=== PATIENT | female | born 1945 | race Caucasian/White ===

== ENCOUNTER 2016-07-16 06:13 | Day surgery (SDC) | payer MEDICARE ==
[2016-07-16] MEDS ORDERED: PHENYLEPHRINE 2.5% OPHTH 2 ML DROPS ONE (06:32)
[2016-07-16] MEDS ORDERED: CYCLOPENTOLATE 1% OPHTH DROPS 2 ML OPTH ONE (06:45)
[2016-07-16] MEDS ORDERED: PROPARACAINE 0.5% OPHTH DROPS 15 ML OPTH ONE ×2 (06:45→07:41)
[2016-07-16] MEDS ORDERED: PHENYLEPHRINE 2.5% OPHTH 2 ML DROPS OPTH ONE (06:45)
[2016-07-16] MEDS ORDERED: KETOROLAC 0.45% OPHTH DROPS OPTH ONE (06:45)
[2016-07-16] MEDS ORDERED: LACTATED RINGERS 500 ML IV ONE (06:50)
[2016-07-16] MEDS ORDERED: EPINEPHrine 1 MG/ML AMP IVP ONE (07:34)
[2016-07-16] MEDS ORDERED: BSS/LIDOCAINE/EPINEPHRINE 1 ML SYRINGE IO ONE ×2 (07:34)
[2016-07-16] MEDS ORDERED: BRIMONIDINE 0.2% OPHTH DROPS 5 ML OPTH ONE (07:34)
[2016-07-16] MEDS ORDERED: CHONDR SULF/HYALURONATE SYRINGE IO ONE (07:34)
[2016-07-16] MEDS ORDERED: TRIAMCIN/MOXIFLOX/VANCO 1 ML VIAL IO ONE ×2 (07:34)
[2016-07-16] MEDS ORDERED: TIMOLOL 0.5% OPHTH DROPS OPTH ONE (07:41)
[2016-07-16] MEDS ORDERED: PROPOFOL 200 MG/20 ML VIAL IVP ONE (08:00)
[2016-07-16] MEDS ORDERED: LIDOCAINE-MPF 2% 5 ML VIAL IM ONE (08:00)
[2016-07-16] MEDS ORDERED: MIDAZOLAM 2 MG/2 ML VIAL IVP ONE (08:00)
== END 2016-07-16 06:14 | disposition home or self-care (01) ==
PROC: 08RJ3JZ Replacement of Right Lens with Synthetic Substitute, Percutaneous Approach (ICD-10-PCS; principal; 2016-07-16 07:30)
DX: H25.811 Combined forms of age-related cataract, right eye (principal); F32.9 Major depressive disorder, single episode, unspecified; Z90.710 Acquired absence of both cervix and uterus; G47.33 Obstructive sleep apnea (adult) (pediatric); Z96.649 Presence of unspecified artificial hip joint; F41.9 Anxiety disorder, unspecified
CPT/HCPCS: 66984; A9270; V2632

== ENCOUNTER 2017-01-17 19:53 | Emergency (ER) | payer MEDICARE ==
--- NOTE | 2017-01-17 20:18 | ED Physician Documentation ---
History of Present Illness - Stated complaint Stated Complaint: DIZZINESS - Chief complaint Chief Complaint: Neuro - History obtained from History obtained from: Patient - History of Present Illness Timing: Other (71-year-old, relatively healthy, has a history of fatty liver, macular degeneration and some arthritic changes. She is on a diet, 1200 ethan a day and has lost about 50 pounds over the last 5 months. At the age of 28 or so she saw a biometrics specialist in [place] who opined that in the future she may need a pacemaker because of heart fluttering. Since yesterday she has had non- positional lightheadedness that does not change with position changes. There is no associated chest pain or trouble breathing. She does have occasional palpitations with it. She has chronic pedal edema which is unchanged from her usual.) Review of Systems Ten Systems: 10 systems reviewed and negative Constitutional: reports: Weight Loss. 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 HEENT: Tonsil/Adenoidectomy - Present Medications Home Medications: Ambulatory Orders Medication Instructions Recorded Confirmed Venlafaxine ER [Effexor ER] 75 mg PO DAILY 07/15/16 01/17/17 Aspirin Chewable [[facility] 1 tab PO DAILY 01/17/17 01/17/17 Aspirin] - Allergies Allergies/Adverse Reactions: Allergies Allergy/AdvReac Type Severity Reaction Status Date / Time gluten AdvReac Unknown Verified 01/17/17 20:01 - Social History Does the pt smoke?: No Smoking Status: Never smoker - Family History Family history: reports: Non contributory PD ED PE NORMAL - Vitals Vital signs reviewed: Yes - General General: Alert and oriented X 3, No acute distress - HEENT HEENT: PERRL, EOMI - Neck Neck: Supple, no meningeal sign, No bony TTP - Cardiac Cardiac: No murmur, No gallop, Other (see MDM for rhythm discussion) - Respiratory Respiratory: No respiratory distress, Clear bilaterally - Abdomen Abdomen: Normal bowel sounds, Soft, Non tender - Back Back: No CVA TTP, No spinal TTP - Extremities Extremities: No calf tenderness / cord, Other (B 3+ pitting edema) - Neuro Neuro: Alert and oriented X 3, Normal speech - Psych Psych: Normal mood, Normal affect Results - Vitals Vitals: Vital Signs - 24 hr 01/17/17 01/17/17 01/17/17 19:58 20:00 21:15 Temperature 36.9 C Heart Rate 55 L 79 Respiratory 18 17 Rate Blood Pressure 170/92 H 150/68 H O2 Saturation 98 100 01/18/17 01/18/17 00:08 02:12 Temperature 36.8 C Heart Rate 63 70 Respiratory 14 14 Rate Blood Pressure 146/57 H 161/83 H O2 Saturation 95 96 Oxygen O2 Source Room air - EKG (time done) 2022 Rate: Rate (enter#) (64) Rhythm: NSR (with v frequent PVCs) [place]: LAD Intervals: Normal [place] QRS: Normal Ischemia: Normal ST segments Computer interpretation: Agree with computer 2024 Rate: Rate (enter#) (104) Rhythm: Other (Atrial flutter interspersed with sinus rhythm and frequent PVCs and pauses) Computer interpretation: Agree with computer - Labs Labs: Laboratory Tests 01/17/17 01/17/17 01/17/17 20:13 20:13 20:13 WBC 9.7 RBC 5.43 H Hgb 15.7 Hct 46.6 MCV 85.9 MCH 29.0 MCHC 33.8 RDW 15.2 H Plt Count 224 MPV 10.6 Neut # 6.1 Lymph # 2.9 [place] # 0.5 Eos # 0.1 Baso # 0.1 Absolute Nucleated RBC 0.01 Nucleated RBCs 0.1 Manual Slide Review Indicated Platelet Estimate NORMAL (130-450,000) Platelet Morphology 1+ GIANT PLATELETS RBC Morph Micro Appear NORMAL APPEARANCE Sodium 135 Potassium 3.5 Chloride 101 Carbon Dioxide 25 Anion Gap 9.0 BUN 13 Creatinine 0.9 Estimated GFR (MDRD) 61 L Glucose 136 H Calcium 9.3 Magnesium 2.0 Total Bilirubin 0.6 AST 34 ALT 42 Alkaline Phosphatase 120 Troponin I < 0.04 Total Protein 6.8 Albumin 4.1 Globulin 2.7 Albumin/Globulin Ratio 1.5 Lipase 27 TSH 01/17/17 20:13 WBC RBC Hgb Hct MCV MCH MCHC RDW Plt Count MPV Neut # Lymph # [place] # Eos # Baso # Absolute Nucleated RBC Nucleated RBCs Manual Slide Review Platelet Estimate Platelet Morphology RBC Morph Micro Appear Sodium Potassium Chloride Carbon Dioxide Anion Gap BUN Creatinine Estimated GFR (MDRD) Glucose Calcium Magnesium Total Bilirubin AST ALT Alkaline Phosphatase Troponin I Total Protein Albumin Globulin Albumin/Globulin Ratio Lipase TSH 4.65 PD MEDICAL DECISION MAKING - ED course ED course: This is a liz 71-year-old woman who presents with non-positional lightheadedness of the days duration. On exam and on the monitor she is having a significantly variable heart rates, and review of telemetry shows that she is often in what appears to be atrial flutter with a rate near 150, and when she is not she is in a Sinus rhythm with a low rate around 50 with frequent PVCs and pauses of up to 2 seconds. Case was discussed by phone with [facility]ometric[facility] specialist, Dr. Duran Méndez, who did recommend transfer to a cardiology capable facility for evaluation and likely pacer placement. [facility] line called and spoke with Omayra Car, case discussed and he will arrange transfer to [facility] (pt prefers [facility] as she has friends close to that hospital). Departure - Departure Disposition: 02 Transfer Acute Care Hosp Clinical Impression: Sick sinus syndrome Condition: Stable Discharge Date/Time: 01/18/17 02:20
[2017-01-17 20:26] LABS: BASOPHILS # (AUTO) 0.1 10^3/uL (0.0-0.1); BASOPHILS % (AUTO) 1.1 %; EOSINOPHILS # (AUTO) 0.1 10^3/uL (0.0-0.7); EOSINOPHILS % (AUTO) 1.3 %; HCT - HEMATOCRIT 46.6 % (37.0-47.0); HGB - HEMOGLOBIN 15.7 g/dL (12.0-16.0); LYMPHOCYTES # (AUTO) 2.9 10^3/uL (1.5-3.5); LYMPHOCYTES % (AUTO) 29.7 %; MEAN CORPUSCULAR HGB CONC 33.8 g/dL (32.0-36.0); MEAN CORPUSCULAR VOLUME 85.9 fL (81.0-99.0); MEAN PLATELET VOLUME 10.6 fL (7.9-10.8); MONOCYTES # (AUTO) 0.5 10^3/uL (0.0-1.0); MONOCYTES % (AUTO) 5.6 %; NEUTROPHILS # (AUTO) 6.1 10^3/uL (1.5-6.6); NEUTROPHILS % (AUTO) 62.3 %; NUCLEATED RED BLOOD CELLS AUTO 0.1 /100WBC; RED BLOOD COUNT 5.43 10^6/uL (4.20-5.40); RED CELL DISTRIBUTION WIDTH 15.2 % (12.0-15.0); UNCORRECTED WHITE BLOOD COUNT 9.7 x10^3/uL; WHITE BLOOD COUNT 9.7 x10^3/uL (4.8-10.8)
[2017-01-17 20:37] LABS: ALBUMIN/GLOBULIN RATIO 1.5 (1.0-2.2); BILIRUBIN,TOTAL 0.6 mg/dL (0.2-1.0); CALCIUM 9.3 mg/dL (8.5-10.3); CREATININE 0.9 mg/dL (0.4-1.0); POTASSIUM 3.5 mmol/L (3.5-5.0); TOTAL PROTEIN 6.8 g/dL (6.7-8.2)
[2017-01-17 20:39] LABS: PLATELET ESTIMATE, MANUAL NORMAL (130-450,000) (NORMAL); PLATELET MORPHOLOGY 1+ GIANT PLATELETS (NORMAL)
[2017-01-18 02:13] VITALS: BP 161/83
== END 2017-01-18 02:20 | disposition short-term general hospital (02) ==
LOC: ED 19:53
DX: I49.5 Sick sinus syndrome (principal); K76.0 Fatty (change of) liver, not elsewhere classified; M19.90 Unspecified osteoarthritis, unspecified site; I49.9 Cardiac arrhythmia, unspecified; G47.30 Sleep apnea, unspecified
CPT/HCPCS: 36415; 80053; 83690; 83735; 84443; 84484; 85025; 93005; 99285

== ENCOUNTER 2017-01-25 15:58 | Outpatient (CLI) | payer MEDICARE ==
[2017-01-25 19:28] LABS: BASOPHILS # (AUTO) 0.1 10^3/uL (0.0-0.1); BASOPHILS % (AUTO) 0.6 %; EOSINOPHILS # (AUTO) 0.1 10^3/uL (0.0-0.7); EOSINOPHILS % (AUTO) 0.9 %; HCT - HEMATOCRIT 39.7 % (37.0-47.0); HGB - HEMOGLOBIN 13.4 g/dL (12.0-16.0); LYMPHOCYTES # (AUTO) 2.2 10^3/uL (1.5-3.5); LYMPHOCYTES % (AUTO) 22.7 %; MEAN CORPUSCULAR HEMOGLOBIN 29.5 pg (27.0-31.0); MEAN CORPUSCULAR HGB CONC 33.7 g/dL (32.0-36.0); MEAN CORPUSCULAR VOLUME 87.4 fL (81.0-99.0); MEAN PLATELET VOLUME 12.2 fL (7.9-10.8); MONOCYTES # (AUTO) 0.7 10^3/uL (0.0-1.0); MONOCYTES % (AUTO) 6.9 %; NEUTROPHILS # (AUTO) 6.6 10^3/uL (1.5-6.6); NEUTROPHILS % (AUTO) 68.9 %; RED BLOOD COUNT 4.54 10^6/uL (4.20-5.40); RED CELL DISTRIBUTION WIDTH 14.8 % (12.0-15.0); UNCORRECTED WHITE BLOOD COUNT 9.5 x10^3/uL; WHITE BLOOD COUNT 9.5 x10^3/uL (4.8-10.8)
[2017-01-25 19:33] LABS: ALBUMIN/GLOBULIN RATIO 1.4 (1.0-2.2); BILIRUBIN,TOTAL 0.7 mg/dL (0.2-1.0); CALCIUM 9.1 mg/dL (8.5-10.3); CREATININE 0.8 mg/dL (0.4-1.0); POTASSIUM 4.2 mmol/L (3.5-5.0); TOTAL PROTEIN 6.3 g/dL (6.7-8.2)
[2017-01-25 20:04] LABS: PLATELET ESTIMATE, MANUAL NORMAL (130-450,000) (NORMAL); PLATELET MORPHOLOGY 2+ GIANT PLATELETS (NORMAL)
== END 2017-01-25 15:59 | disposition home or self-care (01) ==
LOC: LAB.R 15:58
PROVIDERS: ATTEND Physician Assistant Medical
DX: I49.9 Cardiac arrhythmia, unspecified (principal)
CPT/HCPCS: 80053; 84443; 85025

== ENCOUNTER 2017-02-11 11:00 | Outpatient (CLI) | payer MEDICARE ==
[2017-02-11 12:15] LABS: ALBUMIN/GLOBULIN RATIO 1.5 (1.0-2.2); BILIRUBIN,TOTAL 0.5 mg/dL (0.2-1.0); CALCIUM 9.2 mg/dL (8.5-10.3); CREATININE 0.8 mg/dL (0.4-1.0); POTASSIUM 4.2 mmol/L (3.5-5.0); TOTAL PROTEIN 6.5 g/dL (6.7-8.2)
== END 2017-02-11 11:01 | disposition home or self-care (01) ==
LOC: LAB 11:00
PROVIDERS: ATTEND Physician Assistant Medical
DX: K76.0 Fatty (change of) liver, not elsewhere classified (principal)
CPT/HCPCS: 36415; 80053

== ENCOUNTER 2017-02-24 08:25 | Outpatient (CLI) | payer MEDICARE ==
[2017-02-24 17:39] LABS: BASOPHILS % (AUTO) 0.6 %; EOSINOPHILS # (AUTO) 0.1 10^3/uL (0.0-0.7); EOSINOPHILS % (AUTO) 2.2 %; HCT - HEMATOCRIT 41.9 % (37.0-47.0); HGB - HEMOGLOBIN 13.9 g/dL (12.0-16.0); LYMPHOCYTES # (AUTO) 1.5 10^3/uL (1.5-3.5); LYMPHOCYTES % (AUTO) 22.9 %; MEAN CORPUSCULAR HEMOGLOBIN 29.8 pg (27.0-31.0); MEAN CORPUSCULAR HGB CONC 33.2 g/dL (32.0-36.0); MEAN CORPUSCULAR VOLUME 89.8 fL (81.0-99.0); MEAN PLATELET VOLUME 11.9 fL (7.9-10.8); MONOCYTES # (AUTO) 0.4 10^3/uL (0.0-1.0); NEUTROPHILS # (AUTO) 4.6 10^3/uL (1.5-6.6); NEUTROPHILS % (AUTO) 68.3 %; RED BLOOD COUNT 4.67 10^6/uL (4.20-5.40); RED CELL DISTRIBUTION WIDTH 14.7 % (12.0-15.0); UNCORRECTED WHITE BLOOD COUNT 6.7 x10^3/uL; WHITE BLOOD COUNT 6.7 x10^3/uL (4.8-10.8)
[2017-02-24 17:51] LABS: ALBUMIN/GLOBULIN RATIO 1.5 (1.0-2.2); BILIRUBIN,TOTAL 0.5 mg/dL (0.2-1.0); CALCIUM 9.3 mg/dL (8.5-10.3); CREATININE 0.9 mg/dL (0.4-1.0); TOTAL PROTEIN 6.5 g/dL (6.7-8.2)
== END 2017-02-24 08:26 | disposition home or self-care (01) ==
LOC: LAB.R 08:25
PROVIDERS: ATTEND Physician Assistant Medical
DX: R53.83 Other fatigue (principal); Z79.899 Other long term (current) drug therapy; R94.5 Abnormal results of liver function studies; E04.2 Nontoxic multinodular goiter; F32.9 Major depressive disorder, single episode, unspecified; I49.9 Cardiac arrhythmia, unspecified
CPT/HCPCS: 80053; 84443; 85025

== ENCOUNTER 2017-03-08 13:18 | Outpatient (CLI) | payer MEDICARE | END 2017-03-08 13:19 | disposition home or self-care (01) | LOC: SC 13:18 | PROVIDERS: ATTEND Internal Medicine Pulmonary Disease | DX: G47.33 Obstructive sleep apnea (adult) (pediatric) (principal) | CPT/HCPCS: 99203; G0463; 99212 ==

== ENCOUNTER 2017-09-25 17:45 | Inpatient (IN) | payer MEDICARE ==
[2017-09-25] MEDS ORDERED: MECLIZINE 12.5 MG TABLET PO STA (18:29)
[2017-09-25] MEDS ORDERED: ONDANSETRON 4 MG/2 ML VIAL IVP STA (18:29)
--- NOTE | 2017-09-25 18:31 | ED Physician Documentation ---
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 She abruptly at 650 this morning developed vertigo which has been persistent all day and feeling seasick with vomiting. 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 HEENT: Tonsil/Adenoidectomy - Present Medications Home Medications: Ambulatory Orders Medication Instructions Recorded Confirmed Venlafaxine ER [Effexor ER] 75 mg PO DAILY 07/15/16 01/17/17 Aspirin Chewable [[facility] 1 tab PO DAILY 01/17/17 01/17/17 Aspirin] Mv-Mn/Om3/Dha/Epa/Fish/Lut/Kyaw 1 cap PO DAILY 09/25/17 09/25/17 [L[employer] Softgel] traZODone [Desyrel] 50 mg PO HS PRN 09/25/17 09/25/17 - Allergies Allergies/Adverse Reactions: Allergies Allergy/AdvReac Type Severity Reaction Status Date / Time gluten AdvReac Unknown Verified 09/25/17 18:11 - Social History Does the pt smoke?: No Smoking Status: Never smoker - Family History Family history: reports: Non contributory PD ED PE NORMAL - Vitals Vital signs reviewed: Yes - General General: Alert and oriented X 3, No acute distress - HEENT HEENT: PERRL, EOMI - Neck Neck: Supple, no meningeal sign, No bony TTP - Cardiac Cardiac: RRR, No murmur - Respiratory Respiratory: No respiratory distress, Clear bilaterally - Abdomen Abdomen: Normal bowel sounds, Soft, Non tender - Neuro Neuro: Alert and oriented X 3, Normal speech, Other (NIH stroke scale is concerning because she has rotatory nystagmus and truncal ataxia but without obvious abnormal finger to nose or heel to andrade testing. Formally her NIH stroke scale is 0.) - Psych Psych: Normal mood, Normal affect Results - Vitals Vitals: Vital Signs - 24 hr 09/25/17 09/25/17 09/25/17 18:03 19:22 20:45 Temperature 36.8 C Heart Rate 61 50 L 55 L Respiratory 16 16 20 Rate Blood Pressure 170/62 H 181/77 H 145/90 H O2 Saturation 99 100 100 Oxygen O2 Source Room air - EKG (time done) 847 Rate: Rate (enter#) (47) Rhythm: Sinus bradycardia [place]: Normal Intervals: Normal [place] QRS: Normal, Low voltage Computer interpretation: Agree with computer - Labs Labs: Laboratory Tests 09/25/17 09/25/17 09/25/17 18:42 18:42 18:42 WBC 7.5 RBC 5.10 Hgb 14.4 Hct 43.3 MCV 85.0 MCH 28.3 MCHC 33.3 RDW 14.1 Plt Count 234 MPV 9.8 Neut # 5.7 Lymph # 1.4 L [place] # 0.3 Eos # 0.0 Baso # 0.0 Absolute Nucleated RBC 0.00 Nucleated RBC % 0.0 PT 11.2 INR 1.0 Sodium 139 Potassium 3.6 Chloride 104 Carbon Dioxide 25 Anion Gap 10.0 BUN 19 Creatinine 0.8 Estimated GFR (MDRD) 70 L Glucose 151 H Calcium 9.1 Total Bilirubin 0.8 AST 38 ALT 54 Alkaline Phosphatase 144 H Total Protein 6.4 L Albumin 3.9 Globulin 2.5 Albumin/Globulin Ratio 1.6 Lipase 26 Urine Color Urine Clarity Urine pH Ur Specific [place] Urine Protein Urine Glucose (UA) Urine Ketones Urine Occult Blood Urine Nitrite Urine Bilirubin Urine Urobilinogen Ur Leukocyte Esterase Ur Microscopic Review Urine Culture Comments 09/25/17 20:49 WBC RBC Hgb Hct MCV MCH MCHC RDW Plt Count MPV Neut # Lymph # [place] # Eos # Baso # Absolute Nucleated RBC Nucleated RBC % PT INR Sodium Potassium Chloride Carbon Dioxide Anion Gap BUN Creatinine Estimated GFR (MDRD) Glucose Calcium Total Bilirubin AST ALT Alkaline Phosphatase Total Protein Albumin Globulin Albumin/Globulin Ratio Lipase Urine Color YELLOW Urine Clarity CLEAR Urine pH 7.5 Ur Specific [place] 1.010 Urine Protein NEGATIVE Urine Glucose (UA) NEGATIVE Urine Ketones 15 H Urine Occult Blood NEGATIVE Urine Nitrite NEGATIVE Urine Bilirubin NEGATIVE Urine Urobilinogen 0.2 (NORMAL) Ur Leukocyte Esterase NEGATIVE Ur Microscopic Review NOT INDICATED Urine Culture Comments NOT INDICATED - Rads (name of study) CT Head Radiology: EMP read contemporaneously (NAD) CTA Head Radiology: EMP read contemporaneously (1. Noncontrast CT head has been performed and dictated separately. No abnormal enhancement postcontrast CT head. 2. HIgh-grade, likely 80-90% narrowing proximal M1 segment right MCA (for example series 4 image 87, series 7 image 66). There is also a second focal stenosis within the distal M1 segment of the right MCA (series 4 image 87, series 8 image 63), with likely at least 60-70% stenosis. The caliber of the right MCA more distally remains decreased when compared to the contralateral left side. 3. A1 segment of the left KWASI is hypoplastic but patent, with a focal superimposed stenosis likely 60-70% at the origin of the A1 segment. 4. The focal intracranial stenoses are nonspecific, may represent atherosclerosis versus vasculitis versus vasospasm. 5. No CTA evidence of proximal artery occlusion, dissection, aneurysm, or vascular malformation within the intracranial arteries. 6. Concurrently obtained CTA neck is dictated separately. ) PD MEDICAL DECISION MAKING - ED course ED course: 72yo woman with vertigo likely posterior CVA based on exam with rotatory Nystagmus and truncal ataxia. Head CT initially to my eye looks normal. Spoke with Dr. Mauro Owusu at [facility] who recommended CT angiography of the head and neck and if negative can be admitted here. If positive should go down to [facility]. She is not a TPA candidate based on the timeframe. She was administered aspirin and I spoke with Dr. Mena for admission at 9:40 PM. Departure - Departure Disposition: 66 [facility] DC/Xfer Clinical Impression: CVA (cerebral vascular accident) Qualifiers: CVA mechanism: unspecified Qualified Code(s): I63.9 - Cerebral infarction, unspecified Condition: Stable
[2017-09-25 19:02] LABS: BASOPHILS % (AUTO) 0.6 %; EOSINOPHILS % (AUTO) 0.5 %; HGB - HEMOGLOBIN 14.4 g/dL (12.0-16.0); LYMPHOCYTES # (AUTO) 1.4 10^3/uL (1.5-3.5); LYMPHOCYTES % (AUTO) 18.5 %; MEAN CORPUSCULAR HEMOGLOBIN 28.3 pg (27.0-31.0); MEAN CORPUSCULAR HGB CONC 33.3 g/dL (32.0-36.0); MEAN PLATELET VOLUME 9.8 fL (7.9-10.8); MONOCYTES # (AUTO) 0.3 10^3/uL (0.0-1.0); MONOCYTES % (AUTO) 4.4 %; NEUTROPHILS # (AUTO) 5.7 10^3/uL (1.5-6.6); PLT - PLATELET COUNT 234 10^3/uL (130-450); RED CELL DISTRIBUTION WIDTH 14.1 % (12.0-15.0); WHITE BLOOD COUNT 7.5 x10^3/uL (4.8-10.8)
--- NOTE | 2017-09-25 19:11 | CT Report ---
EXAM: CT HEAD EXAM DATE: 09/25/2017 07:00 PM. CLINICAL HISTORY: Vertigo. COMPARISON: None. TECHNIQUE: Multiaxial CT images were obtained from the foramen magnum to the vertex. Reformats: Coron al. IV contrast: None. In accordance with CT protocol optimization, one or more of the following dose reduction techniques w ere utilized for this exam: automated exposure control, adjustment of mA and/or KV based on patient s ize, or use of iterative reconstructive technique. FINDINGS: Parenchyma: No intraparenchymal hemorrhage. No evidence of mass, midline shift, or CT findings of inf arction. Loya-white differentiation is distinct. Extraaxial Spaces: Normal for age. No subdural or epidural collections identified. Ventricles: Normal in size and position. Sinuses and Orbits: Imaged paranasal sinuses, orbits, and mastoids show no significant abnormality. Bones: No evidence of fracture or calvarial defect. Other: None. IMPRESSION: No acute intracranial CT abnormality. [facility] Referring Provider Line: [phone] SITE ID: [id number]
[2017-09-25 19:13] LABS: ALBUMIN 3.9 g/dL (3.2-5.5); ALBUMIN/GLOBULIN RATIO 1.6 (1.0-2.2); BILIRUBIN,TOTAL 0.8 mg/dL (0.2-1.0); CALCIUM 9.1 mg/dL (8.5-10.3); CREATININE 0.8 mg/dL (0.4-1.0); TOTAL PROTEIN 6.4 g/dL (6.7-8.2)
[2017-09-25 19:44] LABS: PT - PROTHROMBIN TIME 11.2 secs (9.9-12.6)
[2017-09-25] MEDS ORDERED: IOPAMIDOL-300 100 ML VIAL ONE (20:08)
[2017-09-25 20:59] LABS: BILIRUBIN,URINE NEGATIVE (NEGATIVE); GLUCOSE, URINE (UA) NEGATIVE (NEGATIVE); KETONES,URINE (UA) 15 mg/dL (NEGATIVE); LEUKOCYTE ESTERASE, URINE NEGATIVE (NEGATIVE); NITRITE,URINE NEGATIVE (NEGATIVE); OCCULT BLOOD,URINE NEGATIVE (NEGATIVE); PH,URINE 7.5 PH (5.0-7.5); PROTEIN,URINE NEGATIVE (NEGATIVE); UROBILINOGEN,URINE 0.2 (NORMAL) E.U./dL (NORMAL)
[2017-09-25] MEDS ORDERED: IOPAMIDOL-300 100 ML VIAL IVP ONE (20:59)
[2017-09-25 21:02] LABS: CLARITY,URINE CLEAR (CLEAR)
[2017-09-25] MEDS ORDERED: ASPIRIN CHEW 81 MG TABLET PO STA (21:39)
--- NOTE | 2017-09-25 21:44 | CT Report ---
EXAM: CT ANGIOGRAM HEAD. CT SCAN OF THE HEAD WITH CONTRAST. EXAM DATE: 09/25/2017 08:57 PM CLINICAL HISTORY: 72-year-old female with severe vertigo. Concern for posterior CVA COMPARISON: Noncontrast CT head 09/25/2017 TECHNIQUE: - CT Scan Head: Using a multidetector scanner, axial images were acquired from the foramen magnum to the skull vertex following contrast administration. - CT Angiogram: Using a multidetector scanner, high-resolution axial images were acquired from the sk ull base through vertex following rapid infusion of intravenous contrast. Reformats: Multiplanar MIP reformats were reconstructed. Nascet criteria used for stenosis measurement. IV Contrast: 80 ML ISOVUE 300. In accordance with CT protocol optimization, one or more of the following dose reduction techniques w ere utilized for this exam: automated exposure control, adjustment of mA and/or KV based on patient s ize, or use of iterative reconstructive technique. FINDINGS: NON-CONTRAST HEAD: Performed and dictated separately. POST-CONTRAST HEAD: No abnormal enhancement. CT ANGIOGRAM HEAD: RIGHT: Internal Carotid artery: No evidence of dissection. No evidence of aneurysm along the intracranial IC A. Anterior Cerebral Artery: Patent without significant stenosis, aneurysm, or vascular malformation. Middle Cerebral Artery: There is high-grade, likely 80-90% narrowing proximal M1 segment right MCA (f or example series 4 image 87, series 7 image 66). There is also a second focal stenosis within the di stal M1 segment of the right MCA (series 4 image 87, series 8 image 63), with likely at least 60-70% stenosis. The caliber of the right MCA more distally remains decreased when compared to the contralat eral left side Posterior Cerebral Artery: Patent without significant stenosis, aneurysm, or vascular malformation. Posterior Communicating Artery: Patent. No aneurysm. Vertebral Artery: Patent without significant stenosis. No evidence of dissection. LEFT: Internal Carotid artery: No evidence of dissection. No evidence of aneurysm along the intracranial IC A. Anterior Cerebral Artery: A1 segment of the left KWASI is hypoplastic but patent, with a focal superimp osed stenosis likely 60-70% at the origin of the A1 segment. More distally the left KWASI is unremarkab le. Middle Cerebral Artery: Patent without significant stenosis, aneurysm, or vascular malformation. Posterior Cerebral Artery: Patent without significant stenosis, aneurysm, or vascular malformation. Posterior Communicating Artery: Patent. No aneurysm. Vertebral Artery: Patent without significant stenosis. No evidence of dissection. CENTRAL: Anterior Communicating Artery: Patent. No aneurysm. Basilar Artery: Patent without significant stenosis. No aneurysm. DURAL VENOUS SINUSES AND MAJOR CENTRAL VEINS: Patent. The left transverse sinus is dominant. IMPRESSION: 1. Noncontrast CT head has been performed and dictated separately. No abnormal enhancement postcontra st CT head. 2. HIgh-grade, likely 80-90% narrowing proximal M1 segment right MCA (for example series 4 image 87, series 7 image 66). There is also a second focal stenosis within the distal M1 segment of the right M CA (series 4 image 87, series 8 image 63), with likely at least 60-70% stenosis. The caliber of the r ight MCA more distally remains decreased when compared to the contralateral left side. 3. A1 segment of the left KWASI is hypoplastic but patent, with a focal superimposed stenosis likely 60 -70% at the origin of the A1 segment. 4. The focal intracranial stenoses are nonspecific, may represent atherosclerosis versus vasculitis v ersus vasospasm. 5. No CTA evidence of proximal artery occlusion, dissection, aneurysm, or vascular malformation withi n the intracranial arteries. 6. Concurrently obtained CTA neck is dictated separately. The findings were discussed with Dr. Montoya 9:40 PM on 09/25/2017. [facility] Referring Provider Line: [phone] SITE ID: [id number]
[2017-09-25] MEDS ORDERED: traZODone 50 MG TABLET PO PRN (21:49)
[2017-09-25] MEDS ORDERED: ASPIRIN CHEW 81 MG TABLET ONE (21:51)
--- NOTE | 2017-09-25 21:52 | CT Report ---
EXAM: CT ANGIOGRAM NECK EXAM DATE: 09/25/2017 08:58 PM. CLINICAL HISTORY: Posterior CVA. COMPARISON: CTA head obtained concurrently TECHNIQUE: Routine axial helical imaging was performed from the skull base through the aortic arch. R econstructions: Routine multiplanar 3D MIP reconstructions. IV Contrast: 80 ML ISOVUE 300. Evaluation of arterial stenosis is based on a NASCET method of measurement. In accordance with CT protocol optimization, one or more of the following dose reduction techniques w ere utilized for this exam: automated exposure control, adjustment of mA and/or KV based on patient s ize, or use of iterative reconstructive technique. FINDINGS: Right Carotid: Mild atherosclerosis right carotid bifurcation and right carotid bulb, no hemodynamica lly significant stenosis. The common carotid, internal carotid, and external carotid arteries are wid [place] patent. No evidence of dissection. Left Carotid: Mild atherosclerosis left carotid bifurcation and left carotid bulb, no hemodynamically significant stenosis The common carotid, internal carotid, and external carotid arteries are widely patent. No evidence of dissection Vertebrals: The right vertebral artery slightly dominant. Approximately 20-30% narrowing origin of th e right vertebral artery. The vertebrobasilar system is otherwise unremarkable. Intracranial Circulation: Concurrently obtained CT head is dictated separately. Other: The visualized lung apices are clear. Moderate to severe multilevel degenerative spondylosis o f the visualized spine, no acute fracture or malalignment. The visualized soft tissues of the neck de monstrate no acute abnormality. IMPRESSION: 1. Concurrently obtained CTA head is dictated separately. 2. No CT evidence of high-grade stenosis, dissection, occlusion, aneurysm, or vascular malformation w ithin the extracranial arteries. 3. Mild atherosclerosis right carotid bifurcation and right carotid bulb, no hemodynamically signific ant stenosis. 4. Mild atherosclerosis left carotid bifurcation and left carotid bulb, no hemodynamically significan t stenosis 5. The right vertebral artery slightly dominant. Approximately 20-30% narrowing origin of the right v ertebral artery. The vertebrobasilar system is otherwise unremarkable. The findings were discussed with Dr. Montoya 9:40 PM on 09/25/2017. [facility] Referring Provider Line: [phone] SITE ID: [id number]
[2017-09-25] MEDS ORDERED: PROMETHAZINE 25 MG/1 ML VIAL IM PRN (21:53)
[2017-09-25] MEDS ORDERED: oxyCODONE 5 MG TABLET PO PRN (21:53)
[2017-09-25] MEDS ORDERED: ZOLPIDEM 5 MG TABLET PO PRN (21:53)
[2017-09-25] MEDS ORDERED: PROCHLORPERAZINE 10 MG/2 ML VIAL IVP PRN (21:53)
[2017-09-25] MEDS ORDERED: ACETAMINOPHEN 325 MG TABLET PO PRN (21:53)
[2017-09-25] MEDS: ONDANSETRON 4 MG/2 ML VIAL IVP PRN (22:34)
--- NOTE | 2017-09-25 23:01 | HISTORY & PHYSICAL EXAMINATION ---
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 The patient states she was in her normal state of health when she went to sleep last night. She states that she woke up this morning at 6:50 AM and when she got up she noticed that she had extreme vertigo. She states that she had to hold onto the side faust just to get into the bathroom. She states that she became extremely nauseated and vomited several times. She states that she canceled all her activities for the day and thought maybe she could sleep it off. The patient denies any fevers, chills or recent illness. She also denies any ringing in her ears, ear pain or any other upper respiratory symptoms. The patient states that the vertigo persisted throughout the day. She states that she had a great deal of difficulty walking around as she had an unsteady gait. She states that anytime she tried to get up or moved in the bed she became extremely nauseated and continued to have episodes of emesis throughout the day. She states that she has never experienced anything like this before. She does admit to some photophobia but denies a headache. She also states that she had blurry vision as she states that she cannot stay focused on any single object with her eyes. The patient denies any difficulties with her speech, facial droop or any kind of weakness. She states the vertigo is present anytime she moves her eyes, head , sits up or stands up. She states that since it did not go away throughout the day finally this evening she decided she needed to come into the emergency department. Patient denies any runny nose, sore throat, nasal congestion, difficulty swallowing, chest pain, shortness of air, orthopnea, PND, increased lower extremity swelling, cough, abdominal pain, diarrhea, constipation, urinary urgency, urinary frequency, dysuria, joint pain, joint swelling, muscle aches, back pain, neck stiffness, recent unintentional weight loss, changes in her appetite, skin rashes or skin changes, polyuria, polydipsia, hair loss, fatigue , night sweats or any focal neurologic deficits. On presentation to the emergency department the patient was afebrile and heart rate was 61 but she did have episodes of bradycardia on the court recording monitor. The patient was hypertensive and remained hypertensive throughout the time she was in the emergency department. She was not in any respiratory distress. On examination in the emergency department the patient was found to have rotatory nystagmus and truncal ataxia with an NIH stroke scale score of 0. The patient underwent a CT scan of her brain which showed no acute intracranial abnormality. The emergency room physician spoke with Dr. Owusu production miner neurologist at [facility] who recommended a CT angiogram of the head and neck and stated if it was negative for a large thrombus that the patient should be admitted to [facility]. He stated that the patient was not in the timeframe for TPA. But from her clinical presentation she likely had a posterior stroke. The patient underwent a CT angiogram of the head and neck which revealed a high-grade likely 80-90% narrowing proximal M1 segment right MCA. There was also a second focal stenosis within the distal M1 segment of the right MCA with likely at least 60- 70% stenosis. The caliber of the right MCA more distally remained decreased when compared to the contralateral left side. The patient's A1 segment of the left KWASI was hypoplastic but patent with a focal superimposed stenosis likely 60 -70% at the origin of the A1 segment. The focal intracranial stenosis are nonspecific, and may represent atherosclerosis versus vasculitis versus vasospasm. On the CTA neck there was a finding of approximately 20-30% narrowing at the origin of the right vertebral artery otherwise it was unremarkable. These findings did not explain the patient's symptoms clinically. The patient's lab work was negative for any leukocytosis, elevation in her sed rate or CRP. This went against vasculitis as the cause of her current symptoms. Given the patient's clinical presentation of a posterior stroke the patient was admitted to the medical barger and will undergo further evaluation with an echocardiogram and MRI while she is hospitalized. She will also undergo neuro checks and will be kept on telemetry. She will need to be seen by physical therapy and occupational therapy and monitored for any worsening symptoms. History - Past Medical History Cardiovascular: reports: Arrhythmia (Tachybrady syndrome) Respiratory: reports: Shortness of breath, Sleep apnea, CPAP use Endocrine/Autoimmune: reports: None GI: reports: None : reports: None HEENT: reports: None Psych: reports: Depression, Anxiety Musculoskeletal: reports: Osteoarthritis Derm: reports: None MRSA Hx?: No Other Past Medical History: fatty liver - Past Surgical History Ortho: reports: Hip replacement, Other /CARE PROVIDER: reports: Hysterectomy HEENT: reports: Tonsil/Adenoidectomy - Family & Social History Family History: Mother: , Cancer (Mother and father both of lung cancer they were smokers. Brother has multiple myeloma), Father: , Cancer, Sister: Alive and Well, Brother: Cancer Living arrangement: At home Living Situation: Alone Social History Notes: The patient lives in [place], [place]. She lives alone and has 1 cat. She has never had any children and has never been . She moved would be [place] for years ago. Prior to that she lived in [place] where she worked in [employer] for [employer]. 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 She smoked for a short time during college may be for 6 years and smoked no more than half a pack a day. She has not smoked for nearly 50 years. She does not drink any alcohol and denies any illicit drug use. - POLST Patient has POLST: No POLST Status: Full Code Meds/Allgy - Home Medications Home Medications: Ambulatory Orders Medication Instructions Recorded Confirmed Venlafaxine ER [Effexor ER] 75 mg PO DAILY 07/15/16 01/17/17 Aspirin Chewable [[place] 1 tab PO DAILY 01/17/17 01/17/17 Aspirin] Mv-Mn/Om3/Dha/Epa/Fish/Lut/Kyaw 1 cap PO DAILY 09/25/17 09/25/17 [Lipotriad Visionary Softgel] traZODone [Desyrel] 50 mg PO HS PRN 09/25/17 09/25/17 - Allergies Allergies/Adverse Reactions: Allergies Allergy/AdvReac Type Severity Reaction Status Date / Time gluten AdvReac Unknown Verified 09/25/17 18:11 Review of Systems - Other Findings Other Findings: A comprehensive review of systems was performed the pertinent positives and negatives are stated above in the HPI and the remainder of the review of systems is negative. Exam - Vital Signs Reviewed Vital Signs: Yes Vital Signs: Vital Signs x48h Temp Pulse Resp BP Pulse Ox 09/25/17 22:59 98.5 C H 55 L 16 177/58 H 95 - Physical Exam General Appearance: positive: Alert, Moderate distress (She becomes nauseated with sitting up or moving around in bed and has extreme vertigo.) Eyes Bilateral: positive: Normal inspection, PERRL, No lid inflammation, Conjunctivae nml, No scleral icterus, Other (Patient has rotary nystagmus) ENT: positive: ENT inspection nml, Pharynx nml, No signs of dehydration. negative: Purulent nasal drainage, Pharyngeal erythema, Oral lesions Neck: positive: Nml inspection, Thyroid nml, No JVD, Trachea midline. negative : Thyromegaly, Lymphadenopathy (R), Lymphadenopathy (L), Stiff neck, Carotid bruit, Tracheal deviation Respiratory: positive: Chest non-tender, No respiratory distress, Breath sounds nml. negative: Wheezes, Rales, Rhonchi Cardiovascular: positive: No murmur, No gallop, Extrasystoles, Bradycardia, Other (Patient has a very irregular rhythm) Peripheral Pulses: positive: 2+ Abdomen: positive: Non-tender, No organomegaly, Nml bowel sounds, No distention. negative: Guarding, Rebound, Hepatomegaly Back: positive: Nml inspection. negative: CVA tenderness (R), CVA tenderness (L ) Skin: positive: Color nml, No rash, Warm. negative: Cyanosis, Diaphoresis, Pallor Extremities: positive: Non-tender, Full ROM, Nml appearance, No pedal edema Neurologic/Psychiatric: positive: Oriented x3, CN's nml (2-12), Motor nml, Sensation nml, Mood/affect nml, Other (Gait ataxia) Conclusion/Plan - Problem List (1) Vertigo Conclusion/Plan: The patient presented to the emergency department with severe vertigo. Along with the vertigo she was also found to have rotatory nystagmus, severe nausea and an ataxic gait. Her presentation was very suspicious for a posterior stroke. Patient's CT head was negative and her CT angiogram although it showed significant narrowing in the MCA distribution did not explain her presenting symptoms. The patient's vertigo does not appear to be peripheral rather it appears to be central vertigo and is likely from a posterior stroke. Plan: We will treat the patient as though she has had a posterior stroke as she clinically appears to have had one Aspirin 325 mg daily, Lipitor 80 mg daily Echocardiogram MRI of the brain Allow for permissive hypertension Consult PT and OT Neurochecks Telemetry monitoring (2) Rotary nystagmus Conclusion/Plan: The patient presents to the emergency department with severe vertigo, nausea and vomiting. She was also found to have rotary nystagmus on examination along with ataxia on examination. Given these findings the patient appeared to have central vertigo and appears to have had a posterior stroke. The patient's CT head and CT angiogram of the brain do not show a posterior stroke but given her clinical presentation it is highly likely and the patient will need an MRI. Plan: We will treat the patient as though she has had a posterior stroke as she clinically appears to have had one Aspirin 325 mg daily, Lipitor 80 mg daily Echocardiogram MRI of the brain Allow for permissive hypertension Consult PT and OT Neurochecks Telemetry monitoring (3) Ataxic gait Conclusion/Plan: The patient presented to the emergency department with severe vertigo, nausea and vomiting. On presentation she was found to have rotary nystagmus along with an ataxic gait. The patient also complained of an ataxic gait at home where she was having to hold the faust just to get to the bathroom. The patient appears to have had a posterior stroke clinically. Although the CT angiogram of the head and neck and CT head are negative for stroke at this time she does need to undergo MRI for diagnosis. The patient will be treated as a posterior stroke for now. She was not a TPA candidate given she woke up with the symptoms and presented to the emergency department nearly 12 hours later. The patient presents to the emergency department with severe vertigo, nausea and vomiting. She was also found to have rotary nystagmus on examination along with ataxia on examination. Given these findings the patient appeared to have central vertigo and appears to have had a posterior stroke. The patient's CT head and CT angiogram of the brain do not show a posterior stroke but given her clinical presentation it is highly likely and the patient will need an MRI. (4) Tachy-eugenie syndrome Conclusion/Plan: The patient has a history of tachybradycardia syndrome. She has had an extensive workup including a stress test and has been evaluated by .net programmer. She did not have a pacemaker placed and is not undergoing any kind of intervention. On her telemetry in the emergency department the patient was found to have episodes of tachycardia mixed with bradycardia. Her heart rate though did appear to stay in the 50s-60s and she was asymptomatic. Given findings of narrowing of her intracranial arteries with bradycardia and low flow this could cause symptomology however the patient's presentation with posterior stroke like symptoms does not go with the findings on her CT angiogram. Plan: Monitor on telemetry (5) Hypertension Conclusion/Plan: The patient appears to have hypertension secondary to a new stroke. For the first 48 hours we will allow for permissive hypertension and monitor blood pressure but not treat unless blood pressure is greater than 190 systolic over 110 diastolic. Qualifiers: Hypertension type: other secondary hypertension Qualified Code(s): I15.8 - Other secondary hypertension (6) Depression Conclusion/Plan: The patient has history of depression and is on antidepressants at home with trazodone and Effexor. We will continue these while she is hospitalized currently her mood is stable despite having been told she likely has a stroke. Qualifiers: Depression Type: unspecified Qualified Code(s): F32.9 - Major depressive disorder, single episode, unspecified - Lab Results Lab results reviewed: Yes Fish Bones: 09/25/17 18:42 09/25/17 18:42 Other Lab Results: Laboratory Results WBC 7.5 x10^3/uL (4.8-10.8) 09/25/17 18:42 RBC 5.10 10^6/uL (4.20-5.40) 09/25/17 18:42 Hgb 14.4 g/dL (12.0-16.0) 09/25/17 18:42 Hct 43.3 % (37.0-47.0) 09/25/17 18:42 MCV 85.0 fL (81.0-99.0) 09/25/17 18:42 MCH 28.3 pg (27.0-31.0) 09/25/17 18:42 MCHC 33.3 g/dL (32.0-36.0) 09/25/17 18:42 RDW 14.1 % (12.0-15.0) 09/25/17 18:42 Plt Count 234 10^3/uL (130-450) 09/25/17 18:42 MPV 9.8 fL (7.9-10.8) 09/25/17 18:42 Neut # 5.7 10^3/uL (1.5-6.6) 09/25/17 18:42 Lymph # 1.4 10^3/uL (1.5-3.5) L 09/25/17 18:42 Barren # 0.3 10^3/uL (0.0-1.0) 09/25/17 18:42 Eos # 0.0 10^3/uL (0.0-0.7) 09/25/17 18:42 Baso # 0.0 10^3/uL (0.0-0.1) 09/25/17 18:42 Absolute Nucleated RBC 0.00 x10^3/uL 09/25/17 18:42 Nucleated RBC % 0.0 /100WBC 09/25/17 18:42 ESR 7 mm/Hr (0-30) 09/25/17 18:42 PT 11.2 secs (9.9-12.6) 09/25/17 18:42 INR 1.0 (0.8-1.2) 09/25/17 18:42 Sodium 139 mmol/L (135-145) 09/25/17 18:42 Potassium 3.6 mmol/L (3.5-5.0) 09/25/17 18:42 Chloride 104 mmol/L (101-111) 09/25/17 18:42 Carbon Dioxide 25 mmol/L (21-32) 09/25/17 18:42 Anion Gap 10.0 (6-13) 09/25/17 18:42 BUN 19 mg/dL (6-20) 09/25/17 18:42 Creatinine 0.8 mg/dL (0.4-1.0) 09/25/17 18:42 Estimated GFR (MDRD) 70 (>89) L 09/25/17 18:42 Glucose 151 mg/dL (70-100) H 09/25/17 18:42 Calcium 9.1 mg/dL (8.5-10.3) 09/25/17 18:42 Total Bilirubin 0.8 mg/dL (0.2-1.0) 09/25/17 18:42 AST 38 IU/L (10-42) 09/25/17 18:42 ALT 54 IU/L (10-60) 09/25/17 18:42 Alkaline Phosphatase 144 IU/L (42-121) H 09/25/17 18:42 C-Reactive Protein < 1.0 mg/dL (0-1.0) 09/25/17 18:42 Total Protein 6.4 g/dL (6.7-8.2) L 09/25/17 18:42 Albumin 3.9 g/dL (3.2-5.5) 09/25/17 18:42 Globulin 2.5 g/dL (2.1-4.2) 09/25/17 18:42 Albumin/Globulin Ratio 1.6 (1.0-2.2) 09/25/17 18:42 Lipase 26 U/L (22-51) 09/25/17 18:42 Urine Color YELLOW 09/25/17 20:49 Urine Clarity CLEAR (CLEAR) 09/25/17 20:49 Urine pH 7.5 PH (5.0-7.5) 09/25/17 20:49 Ur Specific [place] 1.010 (1.002-1.030) 09/25/17 20:49 Urine Protein NEGATIVE mg/dL (NEGATIVE) 09/25/17 20:49 Urine Glucose (UA) NEGATIVE mg/dL (NEGATIVE) 09/25/17 20:49 Urine Ketones 15 mg/dL (NEGATIVE) H 09/25/17 20:49 Urine Occult Blood NEGATIVE (NEGATIVE) 09/25/17 20:49 Urine Nitrite NEGATIVE (NEGATIVE) 09/25/17 20:49 Urine Bilirubin NEGATIVE (NEGATIVE) 09/25/17 20:49 Urine Urobilinogen 0.2 (NORMAL) E.U./dL (NORMAL) 09/25/17 20:49 Ur Leukocyte Esterase NEGATIVE (NEGATIVE) 09/25/17 20:49 Ur Microscopic Review NOT INDICATED 09/25/17 20:49 Urine Culture Comments NOT INDICATED 09/25/17 20:49 - Diagnostic Imaging Results Diagnostic Imaging Results: positive: Final report reviewed Diagnostic Imaging Results Comments: EXAM: [id number] CT/HEADWO ([id number]) EXAM: CT HEAD EXAM DATE: 09/25/2017 07:00 PM. CLINICAL HISTORY: Vertigo. COMPARISON: None. TECHNIQUE: Multiaxial CT images were obtained from the foramen magnum to the vertex. Reformats: Coronal. IV contrast: None. In accordance with CT protocol optimization, one or more of the following dose reduction techniques were utilized for this exam: automated exposure control, adjustment of mA and/or KV based on patient size, or use of iterative reconstructive technique. FINDINGS: Parenchyma: No intraparenchymal hemorrhage. No evidence of mass, midline shift, or CT findings of infarction. Loya-white differentiation is distinct. Extraaxial Spaces: Normal for age. No subdural or epidural collections identified. Ventricles: Normal in size and position. Sinuses and Orbits: Imaged paranasal sinuses, orbits, and mastoids show no significant abnormality. Bones: No evidence of fracture or calvarial defect. Other: None. IMPRESSION: No acute intracranial CT abnormality. EXAM: [id number] CT/NECKANG ([id number]) EXAM: CT ANGIOGRAM NECK EXAM DATE: 09/25/2017 08:58 PM. CLINICAL HISTORY: Posterior CVA. COMPARISON: CTA head obtained concurrently TECHNIQUE: Routine axial helical imaging was performed from the skull base through the aortic arch. Reconstructions: Routine multiplanar 3D MIP reconstructions. IV Contrast: 80 ML ISOVUE 300. Evaluation of arterial stenosis is based on a NASCET method of measurement. In accordance with CT protocol optimization, one or more of the following dose reduction techniques were utilized for this exam: automated exposure control, adjustment of mA and/or KV based on patient size, or use of iterative reconstructive technique. FINDINGS: Right Carotid: Mild atherosclerosis right carotid bifurcation and right carotid bulb, no hemodynamically significant stenosis. The common carotid, internal carotid, and external carotid arteries are widely patent. No evidence of dissection. Left Carotid: Mild atherosclerosis left carotid bifurcation and left carotid bulb, no hemodynamically significant stenosis The common carotid, internal carotid, and external carotid arteries are widely patent. No evidence of dissection Vertebrals: The right vertebral artery slightly dominant. Approximately 20-30% narrowing origin of the right vertebral artery. The vertebrobasilar system is otherwise unremarkable. Intracranial Circulation: Concurrently obtained CT head is dictated separately. Other: The visualized lung apices are clear. Moderate to severe multilevel degenerative spondylosis of the visualized spine, no acute fracture or malalignment. The visualized soft tissues of the neck demonstrate no acute abnormality. IMPRESSION: 1. Concurrently obtained CTA head is dictated separately. 2. No CT evidence of high-grade stenosis, dissection, occlusion, aneurysm, or vascular malformation within the extracranial arteries. 3. Mild atherosclerosis right carotid bifurcation and right carotid bulb, no hemodynamically significant stenosis. 4. Mild atherosclerosis left carotid bifurcation and left carotid bulb, no hemodynamically significant stenosis 5. The right vertebral artery slightly dominant. Approximately 20-30% narrowing origin of the right vertebral artery. The vertebrobasilar system is otherwise unremarkable. EXAM: CT ANGIOGRAM HEAD. CT SCAN OF THE HEAD WITH CONTRAST. EXAM DATE: 09/25/2017 08:57 PM CLINICAL HISTORY: 72-year-old female with severe vertigo. Concern for posterior CVA COMPARISON: Noncontrast CT head 09/25/2017 TECHNIQUE: - CT Scan Head: Using a multidetector scanner, axial images were acquired from the foramen magnum to the skull vertex following contrast administration. - CT Angiogram: Using a multidetector scanner, high-resolution axial images were acquired from the skull base through vertex following rapid infusion of intravenous contrast. Reformats: Multiplanar MIP reformats were reconstructed. Nascet criteria used for stenosis measurement. IV Contrast: 80 ML ISOVUE 300. In accordance with CT protocol optimization, one or more of the following dose reduction techniques were utilized for this exam: automated exposure control, adjustment of mA and/or KV based on patient size, or use of iterative reconstructive technique. FINDINGS: NON-CONTRAST HEAD: Performed and dictated separately. POST-CONTRAST HEAD: No abnormal enhancement. CT ANGIOGRAM HEAD: RIGHT: Internal Carotid artery: No evidence of dissection. No evidence of aneurysm along the intracranial ICA. Anterior Cerebral Artery: Patent without significant stenosis, aneurysm, or vascular malformation. Middle Cerebral Artery: There is high-grade, likely 80-90% narrowing proximal M1 segment right MCA (for example series 4 image 87, series 7 image 66). There is also a second focal stenosis within the distal M1 segment of the right MCA (series 4 image 87, series 8 image 63), with likely at least 60-70% stenosis. The caliber of the right MCA more distally remains decreased when compared to the contralateral left side Posterior Cerebral Artery: Patent without significant stenosis, aneurysm, or vascular malformation. Posterior Communicating Artery: Patent. No aneurysm. Vertebral Artery: Patent without significant stenosis. No evidence of dissection. LEFT: Internal Carotid artery: No evidence of dissection. No evidence of aneurysm along the intracranial ICA. Anterior Cerebral Artery: A1 segment of the left KWASI is hypoplastic but patent, with a focal superimposed stenosis likely 60-70% at the origin of the A1 segment. More distally the left KWASI is unremarkable. Middle Cerebral Artery: Patent without significant stenosis, aneurysm, or vascular malformation. Posterior Cerebral Artery: Patent without significant stenosis, aneurysm, or vascular malformation. Posterior Communicating Artery: Patent. No aneurysm. Vertebral Artery: Patent without significant stenosis. No evidence of dissection. CENTRAL: Anterior Communicating Artery: Patent. No aneurysm. Basilar Artery: Patent without significant stenosis. No aneurysm. DURAL VENOUS SINUSES AND MAJOR CENTRAL VEINS: Patent. The left transverse sinus is dominant. IMPRESSION: 1. Noncontrast CT head has been performed and dictated separately. No abnormal enhancement postcontrast CT head. 2. HIgh-grade, likely 80-90% narrowing proximal M1 segment right MCA (for example series 4 image 87 , series 7 image 66). There is also a second focal stenosis within the distal M1 segment of the right MCA (series 4 image 87, series 8 image 63), with likely at least 60-70% stenosis. The caliber of the right MCA more distally remains decreased when compared to the contralateral left side. 3. A1 segment of the left KWASI is hypoplastic but patent, with a focal superimposed stenosis likely 60-70% at the origin of the A1 segment. 4. The focal intracranial stenoses are nonspecific, may represent atherosclerosis versus vasculitis versus vasospasm. 5. No CTA evidence of proximal artery occlusion, dissection, aneurysm, or vascular malformation within the intracranial arteries. 6. Concurrently obtained CTA neck is dictated separately. - EKG Results EKG Interpreted Independently: Yes EKG Findings: Sinus bradycardia with no ischemic changes Core Measures - Anticipated LOS I expect patient to be DC'd or transferred within 96 hours.: Yes - DVT/VTE - Prophylaxis VTE/DVT Prophylaxis med ordered at admit?: Yes
[2017-09-26] MEDS: SODIUM CHLORIDE FLUSH 0.9% 10 ML SYRINGE IVP SCH ×3 (00:19→20:35)
[2017-09-26] MEDS: ONDANSETRON 4 MG/2 ML VIAL IVP PRN ×2 (06:23→15:14)
[2017-09-26] MEDS: SODIUM CHLORIDE FLUSH 0.9% 10 ML SYRINGE IVP PRN ×3 (06:23→15:15)
[2017-09-26 06:40] LABS: BASOPHILS # (AUTO) 0.1 10^3/uL (0.0-0.1); BASOPHILS % (AUTO) 0.6 %; EOSINOPHILS % (AUTO) 0.3 %; HGB - HEMOGLOBIN 13.6 g/dL (12.0-16.0); LYMPHOCYTES # (AUTO) 2.2 10^3/uL (1.5-3.5); LYMPHOCYTES % (AUTO) 22.1 %; MEAN CORPUSCULAR HEMOGLOBIN 28.1 pg (27.0-31.0); MEAN CORPUSCULAR HGB CONC 32.8 g/dL (32.0-36.0); MEAN CORPUSCULAR VOLUME 85.6 fL (81.0-99.0); MEAN PLATELET VOLUME 9.9 fL (7.9-10.8); MONOCYTES # (AUTO) 0.5 10^3/uL (0.0-1.0); MONOCYTES % (AUTO) 4.8 %; NEUTROPHILS # (AUTO) 7.3 10^3/uL (1.5-6.6); NEUTROPHILS % (AUTO) 72.2 %; PLT - PLATELET COUNT 244 10^3/uL (130-450); RED BLOOD COUNT 4.84 10^6/uL (4.20-5.40); RED CELL DISTRIBUTION WIDTH 13.8 % (12.0-15.0); WHITE BLOOD COUNT 10.1 x10^3/uL (4.8-10.8)
[2017-09-26 06:46] LABS: INR 1.1 (0.8-1.2)
[2017-09-26 06:49] LABS: ALBUMIN 3.4 g/dL (3.2-5.5); ALBUMIN/GLOBULIN RATIO 1.4 (1.0-2.2); BILIRUBIN,TOTAL 0.7 mg/dL (0.2-1.0); CALCIUM 8.8 mg/dL (8.5-10.3); CREATININE 0.8 mg/dL (0.4-1.0); TOTAL PROTEIN 5.9 g/dL (6.7-8.2)
[2017-09-26] MEDS: ASPIRIN 325 MG TABLET PO SCH (08:12)
[2017-09-26] MEDS: FAMOTIDINE 20 MG TABLET PO SCH (08:13)
[2017-09-26] MEDS: MULTIVITAMIN TABLET PO SCH (08:13)
[2017-09-26] MEDS: POLYETHYLENE GLYCOL 3350 17 GM PACKET PO SCH (08:18)
[2017-09-26] MEDS ORDERED: ENOXAPARIN 40 MG/0.4 ML SYRINGE SUBQ SCH (09:00)
[2017-09-26] MEDS ORDERED: VENLAFAXINE ER 75 MG CAPSULE PO SCH (09:00)
[2017-09-26] MEDS: VENLAFAXINE ER 75 MG CAPSULE PO SCH ×2 (10:20→20:36)
[2017-09-26] MEDS: [UNRECOGNIZED DRUG - OTHER] PO SCH (10:20)
[2017-09-26] MEDS ORDERED: SODIUM CHLORIDE FLUSH 0.9% 10 ML SYRINGE ONE (10:57)
--- NOTE | 2017-09-26 14:53 | PROVIDER PROGRESS NOTE ---
Subjective - Prog Note Date Prog Note Date: 09/26/17 - Subjective Pt reports feeling: Improved Subjective: pt report she still has vertigo but better, still has some ataxia but better. No fever, chill, cough, CP, SOB. Current Medications - Current Medications Current Medications: Active Medications Acetaminophen (Tylenol) 650 mg PO Q4HR PRN PRN Reason: Pain 1 to 4 Aspirin (Cheko) 325 mg PO DAILYWM [facility] Last Admin: 09/26/17 08:12 Dose: 325 mg Atorvastatin Calcium (Lipitor) 80 mg PO QPM [facility] Famotidine (Pepcid) 20 mg PO DAILY [facility] Last Admin: 09/26/17 08:13 Dose: 20 mg Multivitamins (Theragran) 1 tab PO DAILYWM [facility] Last Admin: 09/26/17 08:13 Dose: 1 tab Ondansetron HCl (Zofran Inj) 4 mg IVP Q6HR PRN PRN Reason: Nausea / Vomiting Last Admin: 09/26/17 06:23 Dose: 4 mg Oxycodone HCl (Roxicodone) 5 mg PO Q4HR PRN PRN Reason: Pain 5 to 7 Lipotriad Vision (Vitamin Capsule) 1 each PO DAILY [facility] Last Admin: 09/26/17 10:20 Dose: 1 each Polyethylene Glycol (Miralax) 17 gm PO DAILY [facility] Last Admin: 09/26/17 08:18 Dose: Not Given Prochlorperazine Edisylate (Compazine Inj) 10 mg IVP Q6HR PRN PRN Reason: Nausea / Vomiting Last Admin: 09/26/17 10:50 Dose: 10 mg Promethazine HCl (Phenergan Inj) 25 mg IM Q6HR PRN PRN Reason: Nausea / Vomiting Sodium Chloride (Normal Saline Flush 0.9%) 10 ml IVP PRN PRN PRN Reason: NEEDED PER PROVIDER ORDERS Last Admin: 09/26/17 10:51 Dose: 10 ml Sodium Chloride (Normal Saline Flush 0.9%) 10 ml IVP 0100,0900,1700 [facility] Last Admin: 09/26/17 08:13 Dose: 10 ml Trazodone HCl (Desyrel) 50 mg PO QPM [facility] Venlafaxine HCl (Effexor Er) 75 mg PO BID [facility] Last Admin: 09/26/17 10:20 Dose: 75 mg Zolpidem Tartrate (Ambien) 5 mg PO QPM PRN PRN Reason: Insomnia Venlafaxine ER [Effexor ER] 75 mg PO BID 07/15/16 Mv-Mn/Om3/Dha/Epa/Fish/Lut/Kyaw [Lipotriad Visionary Softgel] 1 cap PO DAILY traZODone [Desyrel] 50 mg PO QPM 09/25/17 Objective - Vital Signs/Intake & Output Reviewed Vital Signs: Yes Vital Signs: Vital Signs x48h Temp Pulse Pulse Resp Resp BP BP 09/26/17 13:00 36.4 C L 136 H 14 113/80 09/26/17 10:30 56 L 16 127/61 09/26/17 09:40 36.4 C L 52 L 12 123/60 09/26/17 08:00 36.4 C L 52 L 12 123/60 Pulse Ox Pulse Ox 09/26/17 13:00 97 09/26/17 10:30 98 09/26/17 09:40 95 09/26/17 08:00 95 Intake & Output: Intake & Output 09/23/17 09/24/17 09/25/17 09/26/17 23:59 23:59 23:59 23:59 Intake Total 710 Balance 710 - Objective General Appearance: positive: No acute distress, Alert. negative: Lethargic Eyes Bilateral: positive: Normal inspection, PERRL, No lid inflammation, Conjunctivae nml ENT: positive: ENT inspection nml, Pharynx nml, No signs of dehydration. negative: Purulent nasal drainage, Pharyngeal erythema, Oral lesions Neck: positive: Nml inspection, Thyroid nml, No JVD, Trachea midline. negative : Thyromegaly, Lymphadenopathy (R), Lymphadenopathy (L), Stiff neck, Carotid bruit, Swelling/bruising, Tracheal deviation Respiratory: positive: Chest non-tender, No respiratory distress, Breath sounds nml. negative: Wheezes, Rales, Rhonchi Cardiovascular: positive: Regular rate & rhythm, No murmur, No gallop. negative : Irregularly irregular, Extrasystoles, Tachycardia, Bradycardia, JVD present, Systolic murmur, Diastolic murmur Peripheral Pulses: 2+ Radial (R), 2+ Radial (L), 2+ Dorsalis pedis (R), 2+ Dorsalis pedis (L) Abdomen: positive: Non-tender, No organomegaly, Nml bowel sounds, No distention. negative: Tenderness, Guarding, Rebound Back: positive: Nml inspection. negative: CVA tenderness (R), CVA tenderness (L ) Skin: positive: Color nml, No rash, Warm, Dry. negative: Cyanosis, Diaphoresis , Pallor Extremities: positive: Non-tender, Full ROM, Nml appearance. negative: Calf tenderness, Joint swelling, Jori's sign/cords Neurologic/Psychiatric: positive: Oriented x3, Sensation nml. negative: Sensory loss, Facial droop, Slurred/abnml speech, Depressed mood/affect - Lab Results Fish Bones: 09/26/17 06:15 09/26/17 06:15 Other Labs: Lab Results x24hrs 09/26/17 09/26/17 09/26/17 Range/Units 06:15 06:15 06:15 WBC 10.1 (4.8-10.8) x10^3/uL RBC 4.84 (4.20-5.40) 10^6/uL Hgb 13.6 (12.0-16.0) g/dL Hct 41.4 (37.0-47.0) % MCV 85.6 (81.0-99.0) fL MCH 28.1 (27.0-31.0) pg MCHC 32.8 (32.0-36.0) g/dL RDW 13.8 (12.0-15.0) % Plt Count 244 (130-450) 10^3/uL MPV 9.9 (7.9-10.8) fL Neut # 7.3 H (1.5-6.6) 10^3/uL Lymph # 2.2 (1.5-3.5) 10^3/uL [place] # 0.5 (0.0-1.0) 10^3/uL Eos # 0.0 (0.0-0.7) 10^3/uL Baso # 0.1 (0.0-0.1) 10^3/uL Absolute Nucleated RBC 0.01 x10^3/uL Nucleated RBC % 0.1 /100WBC PT 12.0 (9.9-12.6) secs INR 1.1 (0.8-1.2) Sodium 139 (135-145) mmol/L Potassium 3.8 (3.5-5.0) mmol/L Chloride 104 (101-111) mmol/L Carbon Dioxide 26 (21-32) mmol/L Anion Gap 9.0 (6-13) BUN 16 (6-20) mg/dL Creatinine 0.8 (0.4-1.0) mg/dL Estimated GFR (MDRD) 70 L (>89) Glucose 111 H (70-100) mg/dL Calcium 8.8 (8.5-10.3) mg/dL Total Bilirubin 0.7 (0.2-1.0) mg/dL AST 25 (10-42) IU/L ALT 43 (10-60) IU/L Alkaline Phosphatase 120 (42-121) IU/L Total Protein 5.9 L (6.7-8.2) g/dL Albumin 3.4 (3.2-5.5) g/dL Globulin 2.5 (2.1-4.2) g/dL Albumin/Globulin Ratio 1.4 (1.0-2.2) ABX Reporting Has patient been on IV antibiotics over the past 48 hours?: No Assessment/Plan - Problem List (1) Vertigo Impression: Conclusion/Plan: pt's vertigo, nystagmus, nausea are better than yesterday. PT/OT evaluation and treatment MRI is pending continue tele, vital monitor continue neuro check The patient presented to the emergency department with severe vertigo. Along with the vertigo she was also found to have rotatory nystagmus, severe nausea and an ataxic gait. Her presentation was very suspicious for a posterior stroke. Patient's CT head was negative and her CT angiogram although it showed significant narrowing in the MCA distribution did not explain her presenting symptoms. The patient's vertigo does not appear to be peripheral rather it appears to be central vertigo and is likely from a posterior stroke. Plan: We will treat the patient as though she has had a posterior stroke as she clinically appears to have had one Aspirin 325 mg daily, Lipitor 80 mg daily Echocardiogram MRI of the brain Allow for permissive hypertension Consult PT and OT Neurochecks Telemetry monitoring (2) Rotary nystagmus Conclusion/Plan: MRI is pending continue current treatment neuro check The patient presents to the emergency department with severe vertigo, nausea and vomiting. She was also found to have rotary nystagmus on examination along with ataxia on examination. Given these findings the patient appeared to have central vertigo and appears to have had a posterior stroke. The patient's CT head and CT angiogram of the brain do not show a posterior stroke but given her clinical presentation it is highly likely and the patient will need an MRI. Plan: We will treat the patient as though she has had a posterior stroke as she clinically appears to have had one Aspirin 325 mg daily, Lipitor 80 mg daily Echocardiogram MRI of the brain Allow for permissive hypertension Consult PT and OT Neurochecks Telemetry monitoring (3) Ataxic gait Conclusion/Plan: PT/OT evaluation and treatment MRI is pending continue treatment, neuro check The patient presented to the emergency department with severe vertigo, nausea and vomiting. On presentation she was found to have rotary nystagmus along with an ataxic gait. The patient also complained of an ataxic gait at home where she was having to hold the faust just to get to the bathroom. The patient appears to have had a posterior stroke clinically. Although the CT angiogram of the head and neck and CT head are negative for stroke at this time she does need to undergo MRI for diagnosis. The patient will be treated as a posterior stroke for now. She was not a TPA candidate given she woke up with the symptoms and presented to the emergency department nearly 12 hours later. The patient presents to the emergency department with severe vertigo, nausea and vomiting. She was also found to have rotary nystagmus on examination along with ataxia on examination. Given these findings the patient appeared to have central vertigo and appears to have had a posterior stroke. The patient's CT head and CT angiogram of the brain do not show a posterior stroke but given her clinical presentation it is highly likely and the patient will need an MRI. (4) Tachy-eugenie syndrome Conclusion/Plan: pt is asymptomatic pt report she always has this problem for long time, has not been on intervention follow up out-pt manager of recruiting continue tele, vital closely monitor The patient has a history of tachybradycardia syndrome. She has had an extensive workup including a stress test and has been evaluated by manager of recruiting. She did not have a pacemaker placed and is not undergoing any kind of intervention. On her telemetry in the emergency department the patient was found to have episodes of tachycardia mixed with bradycardia. Her heart rate though did appear to stay in the 50s-60s and she was asymptomatic. Given findings of narrowing of her intracranial arteries with bradycardia and low flow this could cause symptomology however the patient's presentation with posterior stroke like symptoms does not go with the findings on her CT angiogram. Plan: Monitor on telemetry (5) Hypertension Conclusion/Plan: hold BP medication continue vital monitor The patient appears to have hypertension secondary to a new stroke. For the first 48 hours we will allow for permissive hypertension and monitor blood pressure but not treat unless blood pressure is greater than 190 systolic over 110 diastolic. (6) Depression Conclusion/Plan: stable, support The patient has history of depression and is on antidepressants at home with trazodone and Effexor. We will continue these while she is hospitalized currently her mood is stable despite having been told she likely has a stroke.
[2017-09-26] MEDS ORDERED: ATORVASTATIN 40 MG TABLET PO SCH (21:00)
[2017-09-26] MEDS ORDERED: traZODone 50 MG TABLET PO SCH (21:00)
[2017-09-27] MEDS: SODIUM CHLORIDE FLUSH 0.9% 10 ML SYRINGE IVP SCH ×2 (00:38→10:00)
[2017-09-27 06:22] LABS: BASOPHILS % (AUTO) 0.7 %; EOSINOPHILS # (AUTO) 0.1 10^3/uL (0.0-0.7); EOSINOPHILS % (AUTO) 1.8 %; HGB - HEMOGLOBIN 13.7 g/dL (12.0-16.0); LYMPHOCYTES # (AUTO) 2.9 10^3/uL (1.5-3.5); LYMPHOCYTES % (AUTO) 39.5 %; MEAN CORPUSCULAR HEMOGLOBIN 28.6 pg (27.0-31.0); MEAN CORPUSCULAR HGB CONC 33.3 g/dL (32.0-36.0); MEAN CORPUSCULAR VOLUME 85.8 fL (81.0-99.0); MEAN PLATELET VOLUME 9.7 fL (7.9-10.8); MONOCYTES # (AUTO) 0.5 10^3/uL (0.0-1.0); NEUTROPHILS # (AUTO) 3.7 10^3/uL (1.5-6.6); PLT - PLATELET COUNT 225 10^3/uL (130-450); RED BLOOD COUNT 4.79 10^6/uL (4.20-5.40); WHITE BLOOD COUNT 7.3 x10^3/uL (4.8-10.8)
[2017-09-27 06:36] LABS: ALBUMIN 3.4 g/dL (3.2-5.5); ALBUMIN/GLOBULIN RATIO 1.5 (1.0-2.2); BILIRUBIN,TOTAL 0.9 mg/dL (0.2-1.0); CALCIUM 8.7 mg/dL (8.5-10.3); CREATININE 0.9 mg/dL (0.4-1.0); TOTAL PROTEIN 5.7 g/dL (6.7-8.2)
[2017-09-27 06:39] LABS: CHOL/HDL RATIO 2.6 (<4.4); CHOLESTEROL 185 mg/dL; HDL CHOLESTEROL 71 mg/dL; LDL CHOLESTEROL,CALCULATED 105 mg/dL; LDL/HDL RATIO 1.5 (<4.4); VLDL CHOLESTEROL 9 mg/dL
[2017-09-27] MEDS: ASPIRIN 325 MG TABLET PO SCH (09:57)
[2017-09-27] MEDS: MULTIVITAMIN TABLET PO SCH (09:57)
[2017-09-27] MEDS: VENLAFAXINE ER 75 MG CAPSULE PO SCH (09:57)
[2017-09-27] MEDS: FAMOTIDINE 20 MG TABLET PO SCH (09:57)
[2017-09-27] MEDS: [UNRECOGNIZED DRUG - OTHER] PO SCH (09:59)
[2017-09-27] MEDS: POLYETHYLENE GLYCOL 3350 17 GM PACKET PO SCH (10:21)
--- NOTE | 2017-09-27 11:42 | MRI Preliminary Report ---
Exam: MRI BRAIN W/O IMPRESSION: 1. No definite evidence for acute stroke or hemorrhage. 2. Mild chronic appearing generalized age-related changes. 3. Ill-defined nonspecific foci of mild diffusion hyperintensity at the periphery of the frontal lobe s. This is more likely imaging artifact than real disease and there is no clear evidence for restrict ed diffusion on the ADC map. If however, symptoms of stroke persist or worsen, short interval brain M RI follow-up with repeat DWI imaging may be considered for clarification. [facility] SITE ID: [id number]
--- NOTE | 2017-09-27 12:01 | MRI Report ---
EXAM: MRI BRAIN WITHOUT CONTRAST EXAM DATE: 09/27/2017 10:39 AM. CLINICAL HISTORY: Posterior stroke symptoms. Vertigo. COMPARISON: No prior MRI. TECHNIQUE: Multiplanar, multisequence T1-weighted and fluid-sensitive MR sequences of the brain were performed. Sequences optimized for routine evaluation. Other: None. IV Contrast: None. FINDINGS: There is no evidence for restricted diffusion in the posterior fossa to suggest acute ischemic lay midwife ior circulation infarct. There is minimal amorphous diffusion hyperintensity without restriction invo lving the periphery of the frontal lobes adjacent to the skull which is more likely imaging artifact than acute infarct. No cerebral hemorrhage, mass effect or midline shift. No hydrocephalus. Normal brain volume for age. Multifocal nonspecific bilateral cerebral white matter disease is relatively mild, likely from aging and microangiopathy. IMPRESSION: 1. No definite evidence for acute stroke or hemorrhage. 2. Mild chronic appearing generalized age-related changes. 3. Ill-defined nonspecific foci of mild diffusion hyperintensity at the periphery of the frontal lobe s. This is more likely imaging artifact than real disease and there is no clear evidence for restrict ed diffusion on the ADC map. If however, symptoms of stroke persist or worsen, short interval brain M RI follow-up with repeat DWI imaging may be considered for clarification. [facility] Referring Provider Line: [phone] SITE ID: [id number]
[2017-09-27] MEDS ORDERED: MECLIZINE 12.5 MG TABLET PO PRN (12:42)
--- NOTE | 2017-09-27 14:05 | Discharge Plan ---
Discharge Plan Disposition: Home, Self Care Condition: Poor Prescriptions: Meclizine [Antivert] 12.5 mg PO Q6HR PRN #15 tablet PRN Reason: Dizziness Ondansetron HCl [Zofran] 4 mg PO Q6H PRN #15 tablet PRN Reason: Nausea / Vomiting Diet: Regular Activity Restrictions: Activity as Tolerated Shower Restrictions: No (caregiver closely monitor, fall precaution) Assistance Devices: Walker Weight Bearing: Full Weight Instruction Topics: Meclizine tablets or capsules, Ondansetron tablets, ED Vertigo Unspecified, Dizziness Balance Probs Fainting Additional Instructions or Follow Up instructions: Your stroke workup does not indicate you have a stroke. You may follow up your PCP, follow up out-pt PT's evaluation and treatment, follow up neurologist. Should your symptoms return or worsen, you may present ER or call 911 for help. Follow-Up Care: Outpatient Rehab - PT, Outpatient Rehab - OT No Smoking: If you smoke, Please STOP! Call for help. Follow-up with: Lavinia Aburto PA-C [Primary Care Provider] -
--- NOTE | 2017-09-27 14:15 | DISCHARGE SUMMARY ---
Discharge Summary Discharge Date: 09/27/17 Discharging Provider: WHATLEY Primary Care Provider: Dr. Kate Good Condition at Discharge: Poor Discharge Disposition: 01 Home, Self Care Discharge Facility Name: home - DIAGNOSES Admission Diagnoses: (1) Vertigo pt report she feel much better. she walked with PT/OT without obvious symptoms. Pt request to be d/c. Pt is advised to follow up PCP, have PT/OT evaluation and treatment as out-pt, and follow up a neurologist as out-pt. Per PT/OT recommendation, PT Chun Ludmilayaw is specialized on vestibular system PT evaluation and treatment. Advise pt has a referral from her PCP to have evaluation and treatment from [facility] Pt's stroke workup including MRI, CTA of brain, CTA of neck, ECHO, indicated unremarkable to explain her symptoms. discussed with pt for all her tests, and answer all her questions. (2) Rotary nystagmus resolved (3) Ataxic gait resolved. pt walked with PT/OT (4) Tachy-eugenie syndrome pt did report she had this problem for long time. Her transport nurse knew and watch for her. Pt is asymptomatic. Pt report " there is nothing we can do it." advise pt follow up her transport nurse closely (5) Hypertension stable (6) Depression stable - HPI History of Present Illness: refer from Dr. Mena's HPI on 09/25/17 as the following: Patient is a 72-year-old female with a past medical history significant for tachy-eugenie syndrome which has been worked up extensively by transport nurse but patient does not have a pacemaker, fatty liver, anxiety,depression, obstructive sleep apnea and osteoarthritis status post right hip replacement who presented to the emergency department with a chief complaint of vertigo. The patient states she was in her normal state of health when she went to sleep last night. She states that she woke up this morning at 6:50 AM and when she got up she noticed that she had extreme vertigo. She states that she had to hold onto the side faust just to get into the bathroom. She states that she became extremely nauseated and vomited several times. She states that she canceled all her activities for the day and thought maybe she could sleep it off. The patient denies any fevers, chills or recent illness. She also denies any ringing in her ears, ear pain or any other upper respiratory symptoms. The patient states that the vertigo persisted throughout the day. She states that she had a great deal of difficulty walking around as she had an unsteady gait. She states that anytime she tried to get up or moved in the bed she became extremely nauseated and continued to have episodes of emesis throughout the day. She states that she has never experienced anything like this before. She does admit to some photophobia but denies a headache. She also states that she had blurry vision as she states that she cannot stay focused on any single object with her eyes. The patient denies any difficulties with her speech, facial droop or any kind of weakness. She states the vertigo is present anytime she moves her eyes, head , sits up or stands up. She states that since it did not go away throughout the day finally this evening she decided she needed to come into the emergency department. Patient denies any runny nose, sore throat, nasal congestion, difficulty swallowing, chest pain, shortness of air, orthopnea, PND, increased lower extremity swelling, cough, abdominal pain, diarrhea, constipation, urinary urgency, urinary frequency, dysuria, joint pain, joint swelling, muscle aches, back pain, neck stiffness, recent unintentional weight loss, changes in her appetite, skin rashes or skin changes, polyuria, polydipsia, hair loss, fatigue , night sweats or any focal neurologic deficits. On presentation to the emergency department the patient was afebrile and heart rate was 61 but she did have episodes of bradycardia on the phototypesetting equipment monitor. The patient was hypertensive and remained hypertensive throughout the time she was in the emergency department. She was not in any respiratory distress. On examination in the emergency department the patient was found to have rotatory nystagmus and truncal ataxia with an NIH stroke scale score of 0. The patient underwent a CT scan of her brain which showed no acute intracranial abnormality. The emergency room physician spoke with Dr. Owusu salesperson men's furnishings neurologist at [facility] who recommended a CT angiogram of the head and neck and stated if it was negative for a large thrombus that the patient should be admitted to [facility]. He stated that the patient was not in the timeframe for TPA. But from her clinical presentation she likely had a posterior stroke. The patient underwent a CT angiogram of the head and neck which revealed a high-grade likely 80-90% narrowing proximal M1 segment right MCA. There was also a second focal stenosis within the distal M1 segment of the right MCA with likely at least 60- 70% stenosis. The caliber of the right MCA more distally remained decreased when compared to the contralateral left side. The patient's A1 segment of the left KWASI was hypoplastic but patent with a focal superimposed stenosis likely 60 -70% at the origin of the A1 segment. The focal intracranial stenosis are nonspecific, and may represent atherosclerosis versus vasculitis versus vasospasm. On the CTA neck there was a finding of approximately 20-30% narrowing at the origin of the right vertebral artery otherwise it was unremarkable. These findings did not explain the patient's symptoms clinically. The patient's lab work was negative for any leukocytosis, elevation in her sed rate or CRP. This went against vasculitis as the cause of her current symptoms. Given the patient's clinical presentation of a posterior stroke the patient was admitted to the medical barger and will undergo further evaluation with an echocardiogram and MRI while she is hospitalized. She will also undergo neuro checks and will be kept on telemetry. She will need to be seen by physical therapy and occupational therapy and monitored for any worsening symptoms. - ALLERGIES Allergies/Adverse Reactions: Allergies Allergy/AdvReac Type Severity Reaction Status Date / Time gluten AdvReac Unknown Verified 09/25/17 18:11 - MEDICATIONS Home Medications: Ambulatory Orders Medication Instructions Recorded Confirmed Venlafaxine ER [Effexor ER] 75 mg PO BID 07/15/16 09/26/17 Mv-Mn/Om3/Dha/Epa/Fish/Lut/Kyaw 1 cap PO DAILY 09/25/17 09/25/17 [Lipotriad Visionary Softgel] traZODone [Desyrel] 50 mg PO QPM 09/25/17 09/26/17 Meclizine [Antivert] 12.5 mg PO Q6HR PRN #15 tablet 09/27/17 Ondansetron HCl [Zofran] 4 mg PO Q6H PRN #15 tablet 09/27/17 - PHYSICAL EXAM AT DISCHARGE General Appearance: positive: No acute distress, Alert. negative: Lethargic Eyes Bilateral: positive: Normal inspection, PERRL, No lid inflammation, Conjunctivae nml ENT: positive: ENT inspection nml, Pharynx nml, No signs of dehydration. negative: Purulent nasal drainage, Pharyngeal erythema, Oral lesions Neck: positive: Nml inspection, Thyroid nml, No JVD, Trachea midline. negative : Thyromegaly, Lymphadenopathy (R), Lymphadenopathy (L), Stiff neck, Carotid bruit, Swelling/bruising, Tracheal deviation Respiratory: positive: Chest non-tender, No respiratory distress, Breath sounds nml. negative: Wheezes, Rales, Rhonchi Cardiovascular: positive: Regular rate & rhythm, No murmur, No gallop. negative : Irregularly irregular, Extrasystoles, Tachycardia, Bradycardia, Systolic murmur, Diastolic murmur Peripheral Pulses: positive: 2+ Abdomen: positive: Non-tender, No organomegaly, Nml bowel sounds, No distention. negative: Tenderness, Guarding, Rebound Back: positive: Nml inspection. negative: CVA tenderness (R), CVA tenderness (L ) Skin: positive: Color nml, No rash, Warm, Dry. negative: Cyanosis, Diaphoresis , Pallor Extremities: positive: Non-tender, Full ROM, Nml appearance. negative: Calf tenderness, Joint swelling, Jori's sign/cords Neurologic/Psychiatric: positive: Oriented x3, Motor nml, Sensation nml, Mood/ affect nml. negative: Weakness, Sensory loss, Facial droop, Slurred/abnml speech, Depressed mood/affect - LABS Result Diagrams: 09/27/17 05:53 09/27/17 05:53 - FOLLOW UP Follow Up: Your stroke workup does not indicate you have a stroke. You may follow up your PCP, follow up out-pt PT's evaluation and treatment, follow up neurologist. Should your symptoms return or worsen, you may present ER or call 911 for help. - TIME SPENT Time Spent in Discharge (Minutes): 45
[2017-09-27 16:22] VITALS: BP 134/73
== END 2017-09-27 16:45 | disposition home or self-care (01) | DRG 149 ==
LOC: ED 17:45 → MS2 21:53
PROVIDERS: ADMIT Internal Medicine; ATTEND Nurse Practitioner Gerontology
DX: I63.9 Cerebral infarction, unspecified (principal); R42 Dizziness and giddiness; H55.09 Other forms of nystagmus; G47.30 Sleep apnea, unspecified; F32.9 Major depressive disorder, single episode, unspecified; F41.9 Anxiety disorder, unspecified; Z96.649 Presence of unspecified artificial hip joint; Z79.82 Long term (current) use of aspirin; R26.0 Ataxic gait; I49.5 Sick sinus syndrome; I10 Essential (primary) hypertension
CPT/HCPCS: 36415; 70450; 70496; 70498; 70551; 80053; 80061; 81001; 81003; 83690; 83721; 85025; 85610; 85651; 86140; 87086; 93005; 93306; 96374; 99284; 99285

== ENCOUNTER 2018-03-16 08:07 | Outpatient (CLI) | payer MEDICARE ==
[2018-03-16 17:38] LABS: BASOPHILS % (AUTO) 0.5 %; EOSINOPHILS # (AUTO) 0.1 10^3/uL (0.0-0.7); EOSINOPHILS % (AUTO) 2.8 %; HGB - HEMOGLOBIN 14.6 g/dL (12.0-16.0); LYMPHOCYTES # (AUTO) 1.8 10^3/uL (1.5-3.5); LYMPHOCYTES % (AUTO) 34.9 %; MEAN CORPUSCULAR HEMOGLOBIN 30.7 pg (27.0-31.0); MEAN CORPUSCULAR HGB CONC 34.1 g/dL (32.0-36.0); MEAN CORPUSCULAR VOLUME 90.2 fL (81.0-99.0); MONOCYTES # (AUTO) 0.3 10^3/uL (0.0-1.0); MONOCYTES % (AUTO) 6.2 %; NEUTROPHILS # (AUTO) 2.9 10^3/uL (1.5-6.6); NEUTROPHILS % (AUTO) 55.6 %; PLT - PLATELET COUNT 237 10^3/uL (130-450); RED BLOOD COUNT 4.75 10^6/uL (4.20-5.40); RED CELL DISTRIBUTION WIDTH 14.8 % (12.0-15.0); WHITE BLOOD COUNT 5.2 x10^3/uL (4.8-10.8)
[2018-03-16 17:54] LABS: ALBUMIN 4.1 g/dL (3.2-5.5); ALBUMIN/GLOBULIN RATIO 1.6 (1.0-2.2); ALKALINE PHOSPHATASE 112 IU/L (42-121); ALT ALANINE AMINOTRANSFERASE 33 IU/L (10-60); AST ASPARTATE AMINOTRANSFERASE 27 IU/L (10-42); BILIRUBIN,TOTAL 0.8 mg/dL (0.2-1.0); BUN - BLOOD UREA NITROGEN 13 mg/dL (6-20); CALCIUM 8.9 mg/dL (8.5-10.3); CARBON DIOXIDE - CO2 29 mmol/L (21-32); CHLORIDE 102 mmol/L (101-111); CHOL/HDL RATIO 2.2 (<4.4); CHOLESTEROL 211 mg/dL; CREATININE 0.8 mg/dL (0.4-1.0); GFR - MDRD 70 (>89); GLUCOSE 89 mg/dL (70-100); HDL CHOLESTEROL 96 mg/dL; LDL CHOLESTEROL,CALCULATED 96 mg/dL; SODIUM 140 mmol/L (135-145); TOTAL PROTEIN 6.6 g/dL (6.7-8.2); VLDL CHOLESTEROL 19 mg/dL
== END 2018-03-16 08:08 | disposition home or self-care (01) ==
LOC: LAB.R 08:07
PROVIDERS: ATTEND Physician Assistant Medical
DX: F32.9 Major depressive disorder, single episode, unspecified (principal); Z79.899 Other long term (current) drug therapy; R94.5 Abnormal results of liver function studies; E66.3 Overweight
CPT/HCPCS: 80053; 80061; 83721; 84443; 85025

== ENCOUNTER 2018-04-15 12:57 | Outpatient (CLI) | payer MEDICARE ==
--- NOTE | 2018-04-17 22:38 | Ultrasound Report ---
Reason: MULTIPLE THYROID NODULES Procedure Date: 04/15/2018 Accession Number: [id number] / [id number] Procedure: US - Head or Neck Soft Tissue CPT Code: FULL RESULT: EXAM: THYROID ULTRASOUND EXAM DATE: 04/15/2018 02:04 PM. CLINICAL HISTORY: MULTIPLE THYROID NODULES. COMPARISON: CT 09/25/2017. TECHNIQUE: Real time sonographic imaging of the thyroid was performed by the record maker. Multiple counter sales representative static images were saved for review. FINDINGS: THYROID GLAND: Right Lobe: 3.4 x 1.3 x 1.2 cm, volume 3 cc. Normal background echotexture. Right Lobe Nodules: 7 mm circumscribed isoechoic nodule in the upper pole. Left Lobe: 3.4 x 1.4 x 1.1 cm, volume 3 cc. Normal background echotexture. Left Lobe Nodules: Circumscribed isoechoic nodules, the largest measuring 7 mm in the upper pole. Isthmus: 0.2 cm AP. Isthmic Nodules: None. LYMPH NODES: No adenopathy demonstrated in the central or lateral compartment. OTHER: None. IMPRESSION: Subcentimeter circumscribed isoechoic nodules bilaterally. Nodules are below size criteria for fine needle aspiration recommendation by YANIQUE criteria. Management recommendations are based on 2015 [place] [employer] Management Guidelines for Adult Patients with Thyroid Nodules and Differentiated Thyroid Cancer. [facility]
== END 2018-04-15 12:58 | disposition home or self-care (01) ==
LOC: DI 12:57
PROVIDERS: ATTEND Physician Assistant Medical
DX: E04.2 Nontoxic multinodular goiter (principal)
CPT/HCPCS: 76536

== ENCOUNTER 2018-04-15 12:59 | Outpatient (CLI) | payer MEDICARE ==
--- NOTE | 2018-04-18 09:06 | Mammography Report ---
Reason: SCREENING MAMMO Procedure Date: 04/15/2018 Accession Number: [id number] / [id number] Procedure: [facility]ARILYS - Screening Mammo w/[facility] CPT Code: FULL RESULT: EXAM: Screening Mammo w/Homar DATE: 04/15/2018 2:25 PM CLINICAL HISTORY: Screening encounter. History of early menses and nulliparity. TECHNIQUE: Bilateral CC and MLO views were obtained. COMPARISON: 09/05/2015 through 04/04/2014. FINDINGS: The breasts demonstrate scattered fibroglandular densities bilaterally. There are coarse typically benign calcifications. No suspicious masses, clustered microcalcifications, or regions of architectural distortion are identified. IMPRESSION: Benign findings RECOMMENDATION: Routine annual screening unless otherwise clinically indicated. BIRADS CATEGORY 2: Benign findings STANDARD QUALIFYING STATEMENTS: 1. This examination was not reviewed with the aid of Computer-Aided Detection (CAD). 2. A negative or benign imaging report should not preclude biopsy if clinically suspicious findings are present. 3. Dense breasts may obscure an underlying neoplasm. 4. This examination was reviewed with the aid of 3D breast imaging (tomosynthesis).
== END 2018-04-15 13:00 | disposition home or self-care (01) ==
LOC: DI 12:59
PROVIDERS: ATTEND Physician Assistant Medical
DX: Z12.31 Encounter for screening mammogram for malignant neoplasm of breast (principal)
CPT/HCPCS: 77063; 77067

== ENCOUNTER 2019-04-10 11:31 | Outpatient (CLI) | payer MEDICARE ==
[2019-04-10 11:54] LABS: BASOPHILS % (AUTO) 0.4 %; EOSINOPHILS # (AUTO) 0.1 10^3/uL (0.0-0.7); EOSINOPHILS % (AUTO) 0.9 %; HGB - HEMOGLOBIN 14.9 g/dL (12.0-16.0); LYMPHOCYTES # (AUTO) 2.8 10^3/uL (1.5-3.5); LYMPHOCYTES % (AUTO) 27.3 %; MEAN CORPUSCULAR HEMOGLOBIN 29.1 pg (27.0-31.0); MEAN CORPUSCULAR HGB CONC 32.3 g/dL (32.0-36.0); MEAN CORPUSCULAR VOLUME 90.2 fL (81.0-99.0); MONOCYTES # (AUTO) 0.7 10^3/uL (0.0-1.0); MONOCYTES % (AUTO) 7.1 %; NEUTROPHILS # (AUTO) 6.4 10^3/uL (1.5-6.6); NEUTROPHILS % (AUTO) 63.7 %; PLT - PLATELET COUNT 307 10^3/uL (130-450); RED BLOOD COUNT 5.12 10^6/uL (4.20-5.40); RED CELL DISTRIBUTION WIDTH 14.4 % (12.0-15.0); WHITE BLOOD COUNT 10.1 x10^3/uL (4.8-10.8)
[2019-04-10 12:04] LABS: ALBUMIN 4.1 g/dL (3.2-5.5); ALBUMIN/GLOBULIN RATIO 1.3 (1.0-2.2); BILIRUBIN,TOTAL 0.6 mg/dL (0.2-1.0); CALCIUM 9.4 mg/dL (8.5-10.3); TOTAL PROTEIN 7.2 g/dL (6.7-8.2)
[2019-04-10 13:01] LABS: THYROID STIMULATING HORMONE 2.21 uIU/mL (0.34-5.60)
[2019-04-10 13:03] LABS: FREE T4 (FREE THYROXINE) 0.83 ng/dL (0.58-1.64)
== END 2019-04-10 11:32 | disposition home or self-care (01) ==
LOC: LAB 11:31
PROVIDERS: ATTEND Family Medicine
DX: Z79.899 Other long term (current) drug therapy (principal); E04.2 Nontoxic multinodular goiter; F51.04 Psychophysiologic insomnia; F32.9 Major depressive disorder, single episode, unspecified; K21.9 Gastro-esophageal reflux disease without esophagitis
CPT/HCPCS: 36415; 80053; 84439; 84443; 84481; 85025

== ENCOUNTER 2019-11-02 16:45 | Outpatient (CLI) | payer MEDICARE ==
[2019-11-02 18:33] LABS: BASOPHILS % (AUTO) 0.5 %; EOSINOPHILS # (AUTO) 0.1 10^3/uL (0.0-0.7); EOSINOPHILS % (AUTO) 1.2 %; HGB - HEMOGLOBIN 13.7 g/dL (12.0-16.0); LYMPHOCYTES # (AUTO) 2.2 10^3/uL (1.5-3.5); LYMPHOCYTES % (AUTO) 25.6 %; MEAN CORPUSCULAR HEMOGLOBIN 29.5 pg (27.0-31.0); MEAN CORPUSCULAR HGB CONC 32.8 g/dL (32.0-36.0); MEAN CORPUSCULAR VOLUME 89.9 fL (81.0-99.0); MEAN PLATELET VOLUME 12.6 fL (7.9-10.8); MONOCYTES # (AUTO) 0.5 10^3/uL (0.0-1.0); MONOCYTES % (AUTO) 5.7 %; NEUTROPHILS # (AUTO) 5.6 10^3/uL (1.5-6.6); NEUTROPHILS % (AUTO) 66.6 %; PLT - PLATELET COUNT 262 10^3/uL (130-450); RED BLOOD COUNT 4.65 10^6/uL (4.20-5.40); RED CELL DISTRIBUTION WIDTH 14.2 % (12.0-15.0); WHITE BLOOD COUNT 8.5 x10^3/uL (4.8-10.8)
[2019-11-02 19:11] LABS: ALBUMIN/GLOBULIN RATIO 1.5 (1.0-2.2); BILIRUBIN,TOTAL 0.7 mg/dL (0.2-1.0); CREATININE 0.9 mg/dL (0.4-1.0); TOTAL PROTEIN 6.6 g/dL (6.7-8.2)
== END 2019-11-02 23:59 | disposition home or self-care (01) ==
LOC: LAB.WCP 16:45
PROVIDERS: ATTEND Nurse Practitioner Family
DX: R10.9 Unspecified abdominal pain (principal)
CPT/HCPCS: 36415; 80053; 82150; 83690; 85025

== ENCOUNTER 2019-11-15 15:07 | Outpatient (CLI) | payer MEDICARE ==
[2019-11-15 19:30] LABS: H. PYLORIS ANTIGEN STL NEGATIVE (Negative)
== END 2019-11-15 23:59 | disposition home or self-care (01) ==
LOC: LAB.R 15:07
PROVIDERS: ATTEND Nurse Practitioner Family
DX: R10.9 Unspecified abdominal pain (principal)
CPT/HCPCS: 87338

== ENCOUNTER 2020-03-07 15:31 | Outpatient (CLI) | payer MEDICARE ==
--- NOTE | 2020-03-07 16:33 | XRAY Report ---
PROCEDURE: Knee 3 View RT INDICATIONS: KNEE PAIN, RIGHT TECHNIQUE: 3 views of the right knee(s) were acquired. COMPARISON: None. FINDINGS: Bones: No acute fractures or dislocations. Status post open reduction internal fixation with lateral plate and screw fixation of the proximal right tibia. No evidence for hardware failure or loosening. Moderate tricompartmental degenerative changes. Corticated ossification over the medial femoral cond yle compatible with prior injury to the femoral attachment of the medial collateral ligament. No susp icious bony lesions. Soft tissues: No joint effusion. No suspicious soft tissue calcifications. IMPRESSION: 1. Right knee without acute radiographic abnormalities. 2. Status post surgical fixation of the lateral proximal tibia without evidence for hardware loosenin g or failure. 3. Moderate tricompartmental degenerative changes of the right knee. Reviewed by: Mauro Rico MD on 03/07/2020 4:32 PM PDT Approved by: Mauro Rico MD on 03/07/2020 4:32 PM PDT Station ID: [id number]
== END 2020-03-07 15:32 | disposition home or self-care (01) ==
LOC: DI 15:31
PROVIDERS: ATTEND Family Medicine
DX: M17.11 Unilateral primary osteoarthritis, right knee (principal)

== ENCOUNTER 2020-07-02 11:02 | Outpatient (CLI) | payer MEDICARE ==
[2020-07-02 18:08] LABS: BASOPHILS # (AUTO) 0.1 10^3/uL (0.0-0.1); BASOPHILS % (AUTO) 0.6 %; EOSINOPHILS # (AUTO) 0.1 10^3/uL (0.0-0.7); EOSINOPHILS % (AUTO) 1.2 %; HGB - HEMOGLOBIN 13.7 g/dL (12.0-16.0); LYMPHOCYTES % (AUTO) 23.9 %; MEAN CORPUSCULAR HEMOGLOBIN 30.5 pg (27.0-31.0); MEAN CORPUSCULAR HGB CONC 33.2 g/dL (32.0-36.0); MEAN PLATELET VOLUME 12.9 fL (7.9-10.8); MONOCYTES # (AUTO) 0.7 10^3/uL (0.0-1.0); MONOCYTES % (AUTO) 7.8 %; NEUTROPHILS # (AUTO) 5.6 10^3/uL (1.5-6.6); NEUTROPHILS % (AUTO) 66.1 %; PLT - PLATELET COUNT 272 10^3/uL (130-450); RED BLOOD COUNT 4.49 10^6/uL (4.20-5.40); RED CELL DISTRIBUTION WIDTH 13.8 % (12.0-15.0); WHITE BLOOD COUNT 8.5 x10^3/uL (4.8-10.8)
[2020-07-02 18:43] LABS: CALCIUM 9.1 mg/dL (8.5-10.3); CREATININE 0.9 mg/dL (0.4-1.0)
== END 2020-07-02 23:59 | disposition home or self-care (01) ==
LOC: LAB.WCP 11:02
PROVIDERS: ATTEND Family Medicine
DX: K27.9 Peptic ulcer, site unspecified, unspecified as acute or chronic, without hemorrhage or perforation (principal)
CPT/HCPCS: 36415; 80048; 85025

== ENCOUNTER 2020-07-26 13:17 | Outpatient (CLI) | payer MEDICARE ==
--- NOTE | 2020-07-26 17:06 | XRAY Report ---
PROCEDURE: Lumbar Spine Complete INDICATIONS: LUMBAR RADICULOPATHY, RIGHT TECHNIQUE: 5 views of the lumbar spine were acquired. COMPARISON: None. FINDINGS: Bones: 5 [id number] vertebrae are present. Trace dextrocurvature centered at the L3-L4 level. T race multilevel retrolisthesis. Multilevel disc degeneration, most notably and moderate at the L5-S1 level. Moderate L4-L5 and L5-S1 facet joint arthropathy. Bones are osteopenic. Right hip arthroplasti es present incompletely visualized.. No vertebral body compression fractures. No suspicious bony le sions. Soft tissues: Overlying bowel gas pattern is normal. No suspicious soft tissue calcifications. IMPRESSION: Multilevel spondylosis. Reviewed by: JUDY Avelar on 07/26/2020 5:04 PM PDT Approved by: Susanna Carlos MD on 07/26/2020 5:04 PM PDT Station ID: [id number]
== END 2020-07-26 13:18 | disposition home or self-care (01) ==
LOC: DI 13:17
PROVIDERS: ATTEND Family Medicine
DX: M47.26 Other spondylosis with radiculopathy, lumbar region (principal)

== ENCOUNTER 2021-05-22 06:23 | Day surgery (SDC) | payer MEDICARE ==
[~2021-05-22 06:23] MED LIST: CYCLOPENTOLATE 1% OPHTH DROPS 2 ML ONE; KETOROLAC 0.45% OPHTH DROPS ONE; PHENYLEPHRINE 2.5% OPHTH 2 ML DROPS ONE; PROPARACAINE 0.5% OPHTH DROPS 15 ML ONE
[2021-05-22] MEDS ORDERED: LACTATED RINGERS 1,000 ML IV ONE (06:27)
[2021-05-22] MEDS ORDERED: EPINEPHrine 1 MG/ML AMP ONE (07:10)
[2021-05-22] MEDS ORDERED: TRIAMCIN/MOXIFLOX OPHTHALMIC 0.6 ML VIAL IO ONE ×3 (07:10→07:45)
[2021-05-22] MEDS ORDERED: BRIMONIDINE 0.2% OPHTH DROPS 5 ML ONE (07:10)
[2021-05-22] MEDS ORDERED: TIMOLOL 0.5% OPHTH DROPS ONE (07:10)
[2021-05-22] MEDS ORDERED: BSS/LIDOCAINE/EPINEPHRINE 1 ML SYRINGE ONE (07:11)
--- NOTE | 2021-05-22 07:11 | ANESTHESIA ---
Pre-Anesthesia VS, & Labs - Diagnosis L senile combined cataract - Procedure L extraction cataract w/IOL Vital Signs: Temp Pulse Resp BP Pulse Ox 36.1 C L 18 140/98 H 96 05/22/21 06:27 05/22/21 06:27 05/22/21 06:27 05/22/21 06:27 Height: 5 ft 10 in Weight (kg): 113 kg Body Mass Index: 35.7 BMI Classification: Obese - NPO >8 hours - Is Patient ?: No - Lab Results Lab results reviewed: Yes Home Medications and Allergies Home Medications: Ambulatory Orders Famotidine [Acid-Pep] 20 mg PO DAILY 05/21/21 Venlafaxine ER [Effexor ER] 75 mg PO DAILY 07/15/16 Mv-Mn/Om3/Dha/Epa/Fish/Lut/Kyaw [Lipotriad Visionary Softgel] 1 cap PO DAILY 09/25/17 traZODone [Desyrel] 50 mg PO QPM 09/25/17 Famotidine [Acid-Pep] 20 mg PO DAILY 05/21/21 Allergies/Adverse Reactions: Allergies Allergy/AdvReac Type Severity Reaction Status Date / Time gluten AdvReac Unknown Verified 09/25/17 18:11 Anes History & Medical History - Anesthetic History Anesthesia Complications: reports: No previous complications Family history of Anesthesia Complications: Denies Family history of Malignant Hyperthermia: Denies - Medical History Cardiovascular: reports: Arrhythmia Pulmonary: reports: Shortness of breath, Sleep apnea, CPAP use Gastrointestinal: reports: None Urinary: reports: None Musculoskeletal: reports: Osteoarthritis Endocrine/Autoimmune: reports: None Skin: reports: None Smoking Status: Former smoker - Surgical History Eyes Ears Nose Throat (EENT): reports: Tonsil/Adenoidectomy Gynecologic: reports: Hysterectomy Orthopedic: reports: Hip replacement, Other Exam General: Alert, Oriented x3, Cooperative Mouth Openin Fingerbreadth Neck Mobility: Normal Mallampati classification: II Thyromental Distance: 4-6 cm Respiratory: Lungs clear, Normal breath sounds, No respiratory distress Cardiovascular: Regular rate (occasional PVC on tele) Neurological: Normal speech Cognitive Status: Within normal limits Plan Anesthesia Type: MAC Consent for Procedure(s) Verified and Reviewed: Yes Code Status: Attempt Resuscitation ASA classification: 2-Mild systemic disease Is this case an emergency?: No
[2021-05-22] MEDS ORDERED: MIDAZOLAM 2 MG/2 ML VIAL ONE (07:17)
[2021-05-22] MEDS ORDERED: BSS/LIDOCAINE/EPINEPHRINE 1 ML SYRINGE IO ONE (07:45)
[2021-05-22] MEDS ORDERED: BRIMONIDINE 0.2% OPHTH DROPS 5 ML OPTH ONE (07:45)
[2021-05-22] MEDS ORDERED: PROPARACAINE 0.5% OPHTH DROPS 15 ML EACHEYE ONE (07:45)
[2021-05-22] MEDS ORDERED: EPINEPHrine 1 MG/ML AMP IR ONE (07:45)
[2021-05-22] MEDS ORDERED: TIMOLOL 0.5% OPHTH DROPS OPTH ONE (07:45)
[2021-05-22] MEDS ORDERED: VANCOMYCIN OPHTHALMI 8MG/0.8ML 8 MG/0.8 ML SYRINGE IO ONE (07:45)
[2021-05-22] MEDS ORDERED: LACTATED RINGERS 600 ML IV ONE (07:56)
--- NOTE | 2021-05-22 08:01 | ANESTHESIA POST OP EVALUATION ---
Anesthesia Post Eval - Post Anesthesia Eval Vitals: Last Vital Signs Temp 36.5 C 05/22/21 07:56 Pulse 74 05/22/21 07:56 Resp 14 05/22/21 07:56 BP 156/67 H 05/22/21 07:56 Pulse Ox 97 05/22/21 07:56 CV Function Including HR & BP: Stable Pain Control: Satisfactory Nausea & Vomiting: Negative Mental Status: Baseline Respiratory Status: Airway Patent Hydration Status: Satisfactory Anesthesia Complications: None
[2021-05-22 08:17] VITALS: BP 158/50
--- NOTE | 2021-05-22 08:34 | OPERATIVE REPORT ---
Operative Report - Other Other Information/Narrative: Date of Surgery: 05/22/21 Preop Dx: Visually significant cataract left eye. Cataract surgery was performed in the right eye on [id number]. Postop Dx: Same Procedure: Phacoemulsification with posterior chamber intraocular lens implant left eye Surgeon: Dr. 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 Best corrected visual acuity was 20/50 with glare to 20/200 vision in the left eye. Indications for surgery were: - Overall decrease in vision - Difficulty seeing words, closed captions, or game scores on TV - Difficulty seeing street signs - Difficulty driving in low light or at night - Difficulty driving at night because of headlights from other vehicles - Difficulty with glare or bright lights in any situation The patient was consented at length concerning the risks and benefits of cataract surgery after which the patient expressed a desire to proceed with surgery. Operative Procedure: The patient was taken into OR#3 and placed under monitored anesthesia care. A surgical time-out was conducted confirming correct patient, correct procedure, and correct surgical site. The patient was given topical anesthesia and then prepped and draped in the usual sterile fashion. The eye was entered at the 6 and 3 oclock positions. Intracameral Shugarcaine was injected into the anterior chamber followed by a dispersive viscoelastic. A continuous-tear curvilinear capsulorhexis was performed. The nucleus was hydrodissected and phacoemulsified. The cortex was evacuated using automated infusion and aspiration. A cohesive viscoelastic was injected into the capsular bag and a 21.5 diopter intraocular lens was inserted into the bag. Infusion and aspiration were used to evacuate the viscoelastic materials from the eye. The wounds were hydrated and the eye inflated to physiologic pressure using balanced salt solution. Approximately 0.25ml of a mixture of triamcinolone and moxifloxacin was injected trans-sclerally into the vitreous in the inferotemporal quadrant using a 30 gauge cannula. An additional 0.55ml of a mixture of triamcinolone, moxifloxacin, and vancomycin was injected subconjunctivally in the superior quadrant for infection and inflammation prophylaxis. Wound integrity was checked with Weck-Dara sponges. The patient was taken from the operating room in good condition and given post-op instructions.
== END 2021-05-22 06:24 | disposition home or self-care (01) ==
LOC: SDS 06:23
PROVIDERS: ATTEND Ophthalmology
DX: H25.812 Combined forms of age-related cataract, left eye (principal); I48.91 Unspecified atrial fibrillation; G47.30 Sleep apnea, unspecified; E66.9 Obesity, unspecified; Z68.35 Body mass index [BMI] 35.0-35.9, adult; Z98.41 Cataract extraction status, right eye
CPT/HCPCS: 66984; A9270; J3490; J7120

== ENCOUNTER 2022-01-14 13:18 | Outpatient (CLI) | payer MEDICARE ==
--- NOTE | 2022-01-15 12:35 | Mammography Report ---
BILATERAL DIGITAL SCREENING MAMMOGRAM 3D/2D: 01/14/2022 CLINICAL: Routine screening. Comparison is made to exams dated: 04/15/2018 mammogram, 09/05/2015 mammogram, and 04/04/2014 mammogra m - [facility]. There are scattered areas of fibroglandular density in both breasts (category b / 25%-50% glandular t issue). No significant masses, calcifications, or other findings are seen in either breast. There has been no significant interval change. IMPRESSION: NEGATIVE There is no mammographic evidence of malignancy. A 1 year screening mammogram is recommended. Based on the Tyrer Cuzick model (a risk assessment model) the patients lifetime risk is 3.3% and her 10 year risk is 0.0%. According to the ACR, ACS, and NCCN guidelines, an annual breast MRI exam silvino g with mammogram is recommended if the patients lifetime risk is 20% or greater. This exam was interpreted at Station ID: [id number]. NOTE: For mammograms, a report in lay terms will be sent to the patient. Approximately 15% of breast malignancies will not be visualized mammographically. In the management of a palpable breast mass, a negative mammogram must not discourage biopsy of a clinically suspicious lesion. Electronically Signed By: Mauro marroquin/[email or web address]:01/14/2022 17:49:35 ACR BI-RADS Category 1: Negative 3341F PARENCHYMAL PATTERN: (A) - The breast(s) demonstrate(s) scattered fibroglandular densities. BI-RADS CATEGORY: (1) - 1 RECOMMENDATION: (ANNUAL) - Recommend routine annual screening mammography. [id number] 1 year screening LATERALITY: (B)
== END 2022-01-14 13:19 | disposition home or self-care (01) ==
LOC: DI 13:18
PROVIDERS: ATTEND Family Medicine
DX: Z12.31 Encounter for screening mammogram for malignant neoplasm of breast (principal)

== ENCOUNTER 2022-03-17 10:41 | Emergency (ER) | payer MEDICARE ==
[2022-03-17 11:03] LABS: BASOPHILS % (AUTO) 0.4 %; EOSINOPHILS % (AUTO) 0.3 %; HCT - HEMATOCRIT 46.2 % (37.0-47.0); HGB - HEMOGLOBIN 14.7 g/dL (12.0-16.0); LYMPHOCYTES # (AUTO) 1.9 10^3/uL (1.5-3.5); MEAN CORPUSCULAR HEMOGLOBIN 27.6 pg (27.0-31.0); MEAN CORPUSCULAR HGB CONC 31.8 g/dL (32.0-36.0); MEAN CORPUSCULAR VOLUME 86.7 fL (81.0-99.0); MEAN PLATELET VOLUME 11.1 fL (7.9-10.8); MONOCYTES # (AUTO) 0.7 10^3/uL (0.0-1.0); MONOCYTES % (AUTO) 6.8 %; NEUTROPHILS # (AUTO) 7.7 10^3/uL (1.5-6.6); NEUTROPHILS % (AUTO) 74.2 %; PLT - PLATELET COUNT 264 10^3/uL (130-450); RED BLOOD COUNT 5.33 10^6/uL (4.20-5.40); RED CELL DISTRIBUTION WIDTH 14.5 % (12.0-15.0); WHITE BLOOD COUNT 10.4 x10^3/uL (4.8-10.8)
[2022-03-17 11:19] LABS: ALBUMIN 4.1 g/dL (3.2-5.5); ALBUMIN/GLOBULIN RATIO 1.4 (1.0-2.2); BILIRUBIN,TOTAL 0.6 mg/dL (0.2-1.0); CALCIUM 9.2 mg/dL (8.5-10.3); POTASSIUM 4.1 mmol/L (3.5-5.0)
--- NOTE | 2022-03-17 12:02 | ED Physician Documentation ---
History of Present Illness - Stated complaint Stated Complaint: SYNCOPAL EPISODE - Chief complaint Chief Complaint: Neuro - Additonal information Additional information: 76-year-old female presents emergency department for evaluation after a syncopal episode. She reports that yesterday afternoon she was in the kitchen preparing soup. She had really had nothing to eat during the day except for green tea when she began to feel lightheaded and dizzy. She was walking to a chair to sit down when she suddenly fainted. She struck her head on the floor. She believes she lost consciousness for less than a few seconds because when she woke up her dog had not come to her aid which would be unusual if she had been on the floor for any length of time. She is able to get up on her own but over the course of the day she continued to have some mild dizziness. She has had no nausea or vomiting. No chest pain. She does report fainting about 8 years ago when she had a bleeding gastric ulcer. Denies any melena currently. She does take famotidine and Effexor for for depression. She been told she has some hypertension for which she is trying to lose weight but is not on any antihypertensives. She also has a history of previous tacky bradycardia arrhythmia though prior to the events yesterday she was not having any palpitations. 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 Review of Systems Constitutional: denies: Fever, Chills Eyes: reports: Reviewed and negative Ears: reports: Reviewed and negative Nose: reports: Reviewed and negative Throat: reports: Reviewed and negative Cardiac: reports: Reviewed and negative Respiratory: reports: Reviewed and negative GI: reports: Nausea : reports: Reviewed and negative Skin: reports: Abrasion (s) (Bilateral knee pain). denies: Rash, Lesions Musculoskeletal: reports: Joint pain Neurologic: reports: Syncope. denies: Focal weakness, Numbness, Difficulty speaking, Seizure, Confused, Altered mental status PD PAST MEDICAL HISTORY - Past Medical History Past Medical History: Yes Cardiovascular: Arrhythmia Respiratory: Shortness of breath, Sleep apnea, CPAP use Neuro: None Endocrine/Autoimmune: None GI: GI bleed, Ulcers, Other TEAM FACILITATOR: Fibroids : None HEENT: None Psych: Depression, Anxiety Musculoskeletal: Osteoarthritis, Chronic back pain Derm: None - Past Surgical History Past Surgical History: Yes Ortho: Hip replacement, Other /TEAM FACILITATOR: Hysterectomy HEENT: Tonsil/Adenoidectomy - Present Medications Home Medications: Ambulatory Orders Medication Instructions Recorded Confirmed Venlafaxine ER [Effexor ER] 75 mg PO DAILY 07/15/16 03/17/22 Mv-Mn/Om3/Dha/Epa/Fish/Lut/Kyaw 1 cap PO DAILY 09/25/17 03/17/22 [Lipotriad Visionary Softgel] traZODone [Desyrel] 50 mg PO QPM 09/25/17 03/17/22 Famotidine [Acid-Pep] 40 mg PO DAILY PM 05/21/21 03/17/22 - Allergies Allergies/Adverse Reactions: Allergies Allergy/AdvReac Type Severity Reaction Status Date / Time gluten AdvReac Unknown Verified 09/25/17 18:11 - Social History Does the pt smoke?: No Smoking Status: Former smoker Does the pt drink ETOH?: No Does the pt have substance abuse?: No - Immunizations Immunizations are current?: Yes - POLST Patient has POLST: No POLST Status: Full Code PD ED PE NORMAL - General General: Alert and oriented X 3, No acute distress, Well developed/nourished (Obese) - HEENT HEENT: Atraumatic, Moist mucous membranes - Neck Neck: Supple, no meningeal sign, No adenopathy - Cardiac Cardiac: RRR, No murmur, No gallop - Respiratory Respiratory: No respiratory distress, Clear bilaterally - Abdomen Abdomen: Normal bowel sounds, Soft, Non tender - Back Back: No CVA TTP, No spinal TTP, Other (Superficial bruising on the left anterior knee. 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, No motor deficit, No sensory deficit, Normal speech Eye Opening: Spontaneous Motor: Obeys Commands Verbal: Oriented GCS Score: 15 - Psych Psych: Normal mood Results - Vitals Vitals: Vital Signs - 24 hr 03/17/22 03/17/22 03/17/22 10:44 11:19 11:45 Temperature 36.3 C L 36.2 C L Heart Rate 63 62 60 Heart Rate [ 67 Sitting] Heart Rate [ 80 Standing] Heart Rate [ 62 Supine] Respiratory 16 20 16 Rate Blood Pressure 165/85 H 177/94 H 177/94 H Blood Pressure 178/87 H [Sitting] Blood Pressure 183/96 H [Standing] Blood Pressure 177/94 H [Supine] O2 Saturation 100 98 97 03/17/22 12:02 Temperature Heart Rate 58 L Heart Rate [ Sitting] Heart Rate [ Standing] Heart Rate [ Supine] Respiratory 14 Rate Blood Pressure 183/92 H Blood Pressure [Sitting] Blood Pressure [Standing] Blood Pressure [Supine] O2 Saturation 98 Oxygen O2 Source [Without Activity] Room air O2 Source Room air - EKG (time done) 1059 Rate: Rate (enter#) (64) Rhythm: NSR, Other (PA-C) [place]: Other Intervals: Normal TN. No: Prolonged QT QRS: Poor R wave progression Ischemia: Other (Repull abnormality) Compare to prior EKG: Unchanged from prior EKG - Labs Labs: Laboratory Tests 03/17/22 03/17/22 03/17/22 10:59 10:59 10:59 WBC 10.4 RBC 5.33 Hgb 14.7 Hct 46.2 MCV 86.7 MCH 27.6 MCHC 31.8 L RDW 14.5 Plt Count 264 MPV 11.1 H Neut # (Auto) 7.7 H Lymph # (Auto) 1.9 Haakon # (Auto) 0.7 Eos # (Auto) 0.0 Baso # (Auto) 0.0 Absolute Nucleated RBC 0.00 Nucleated RBC % 0.0 Sodium 136 Potassium 4.1 Chloride 101 Carbon Dioxide 27 Anion Gap 8.0 BUN 15 Creatinine 1.0 Estimated GFR (MDRD) 54 L Glucose 123 H POC Whole Bld Glucose Calcium 9.2 Total Bilirubin 0.6 AST 24 ALT 20 Alkaline Phosphatase 103 Troponin I High Sens 7.0 Total Protein 7.0 Albumin 4.1 Globulin 2.9 Albumin/Globulin Ratio 1.4 Lipase 36 03/17/22 11:01 WBC RBC Hgb Hct MCV MCH MCHC RDW Plt Count MPV Neut # (Auto) Lymph # (Auto) Haakon # (Auto) Eos # (Auto) Baso # (Auto) Absolute Nucleated RBC Nucleated RBC % Sodium Potassium Chloride Carbon Dioxide Anion Gap BUN Creatinine Estimated GFR (MDRD) Glucose POC Whole Bld Glucose 124 H Calcium Total Bilirubin AST ALT Alkaline Phosphatase Troponin I High Sens Total Protein Albumin Globulin Albumin/Globulin Ratio Lipase PD MEDICAL DECISION MAKING - ED course Complexity details: reviewed results, re-evaluated patient, considered differential, d/w patient ED course: 76-year-old female presents emergency department for evaluation of a syncopal episode that occurred early yesterday afternoon. She reports not eating breakfast and having green tea for most of the day when she began to feel lightheaded and dizzy. She did faint though only for a few seconds and was able to get up on her own. She does have a history of fainting about 8 years ago when she had a bleeding gastric ulcer. She denies any recent melena. 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 Here in the emergency department orthostatics were negative. She has no melena and her hemoglobin is healthy at 14. Her EKG shows an essentially unchanged sinus rhythm with some PACs but while here monitored in the emergency department she has had no bradycardia or tachyarrhythmias. She does not appear to have any findings consistent with a heart block. Her troponin is negative. Card iopulmonary auscultation was otherwise unremarkable. I suspect that the cause of the fainting episode yesterday may have been related to very little to eat or drink through the course of the day however with a history of the tachyarrhythmia syndrome she absolutely should be referred for a Holter monitor. The patient has continued to endorse some vague dizziness but she has an intact neurological exam. I did offer CT imaging though she declined that today. I am encouraging her to have more frequent meals and snacks throughout the day in case episodes of hypoglycemia are associated with this. She will follow closely with Dr. Vargas. Was advised to return immediately to the ER for any recurrent symptoms Departure - Departure Disposition: 01 Home, Self Care Clinical Impression: Syncopal episodes Qualifiers: Syncope type: unspecified Qualified Code(s): R55 - Syncope and collapse Condition: Stable Record reviewed to determine appropriate education?: Yes Instructions: ED Fainting Unkn Cause Follow-Up: Ernst Devi MD [Primary Care Provider] - Comments: Luis seen today in the emergency department after fainting episode at home. You had not eaten for quite some time and it is possible that a low blood sugar could have contributed to the symptoms. I encourage you to have more frequent meals and snacks available. Today in the emergency department your EKG showed a sinus rhythm. While on the monitor you have not developed any abnormal slowing or extremely fast heart rates but with your history of tacky bradycardia Arrhythmia I do encourage you to follow closely with Dr. Vargas. You should be referred for a new Holter monitor. Your blood pressures today were elevated but they were not orthostatic with position change which is an important cause to rule out for fainting. Your blood pressures are noted to be elevated today in the emergency department. I would encourage you to check your blood pressures twice daily at home. At this point is probably appropriate to begin treatment of your blood pressures as an outpatient. I think a reasonable goal for you would be a blood pressure between 140 and 160. If we drop your blood pressure too much that could be as harmful is severely elevated blood pressures I suspect you may have a mild concussion after striking her head. I did offer y ou a CT scan which you have declined today but if it the few days moving forward you develop any sudden severe headache, have uncontrolled vomiting or even other fainting episodes you should return immediately to the ER.
[2022-03-17 12:03] VITALS: BP 183/92
== END 2022-03-17 12:25 | disposition home or self-care (01) ==
LOC: ED 10:41
DX: R55 Syncope and collapse (principal); Z87.891 Personal history of nicotine dependence
CPT/HCPCS: 36415; 80053; 83690; 84484; 85025; 93005; 99284

== ENCOUNTER 2023-04-06 09:47 | Outpatient (CLI) | payer MEDICARE ==
[2023-04-06 09:58] LABS: BASOPHILS % (AUTO) 0.5 %; EOSINOPHILS # (AUTO) 0.1 10^3/uL (0.0-0.7); EOSINOPHILS % (AUTO) 1.9 %; HCT - HEMATOCRIT 45.5 % (37.0-47.0); HGB - HEMOGLOBIN 14.6 g/dL (12.0-16.0); LYMPHOCYTES # (AUTO) 2.1 10^3/uL (1.5-3.5); LYMPHOCYTES % (AUTO) 28.6 %; MEAN CORPUSCULAR HEMOGLOBIN 28.3 pg (27.0-31.0); MEAN CORPUSCULAR HGB CONC 32.1 g/dL (32.0-36.0); MEAN CORPUSCULAR VOLUME 88.2 fL (81.0-99.0); MEAN PLATELET VOLUME 11.2 fL (7.9-10.8); MONOCYTES # (AUTO) 0.6 10^3/uL (0.0-1.0); MONOCYTES % (AUTO) 7.7 %; NEUTROPHILS # (AUTO) 4.5 10^3/uL (1.5-6.6); PLT - PLATELET COUNT 295 10^3/uL (130-450); RED BLOOD COUNT 5.16 10^6/uL (4.20-5.40); RED CELL DISTRIBUTION WIDTH 14.6 % (12.0-15.0); WHITE BLOOD COUNT 7.4 x10^3/uL (4.8-10.8)
[2023-04-06 10:16] LABS: ALBUMIN 4.2 g/dL (3.2-5.5); ALBUMIN/GLOBULIN RATIO 1.6 (1.0-2.2); ALKALINE PHOSPHATASE 140 IU/L (42-121); ALT ALANINE AMINOTRANSFERASE 27 IU/L (10-60); AST ASPARTATE AMINOTRANSFERASE 22 IU/L (10-42); BILIRUBIN,TOTAL 0.4 mg/dL (0.2-1.0); BUN - BLOOD UREA NITROGEN 24 mg/dL (6-20); CALCIUM 9.4 mg/dL (8.5-10.3); CARBON DIOXIDE - CO2 28 mmol/L (21-32); CHLORIDE 105 mmol/L (101-111); CHOL/HDL RATIO 3.5 (<4.4); CHOLESTEROL 221 mg/dL; CREATININE 0.9 mg/dL (0.6-1.3); GFR - MDRD 60 (>89); GLUCOSE 111 mg/dL (74-104); HDL CHOLESTEROL 63 mg/dL; LDL CHOLESTEROL,CALCULATED 127 mg/dL; POTASSIUM 4.1 mmol/L (3.5-4.5); SODIUM 139 mmol/L (135-145); TOTAL PROTEIN 6.8 g/dL (6.4-8.9); TRIGLYCERIDES 155 mg/dL (48-352); VLDL CHOLESTEROL 31 mg/dL
[2023-04-06 10:30] LABS: THYROID STIMULATING HORMONE 2.08 uIU/mL (0.34-5.60)
== END 2023-04-06 09:48 | disposition home or self-care (01) ==
LOC: LAB 09:47
PROVIDERS: ATTEND Family Medicine
DX: R03.0 Elevated blood-pressure reading, without diagnosis of hypertension (principal); E66.9 Obesity, unspecified; M15.9 Polyosteoarthritis, unspecified; G47.33 Obstructive sleep apnea (adult) (pediatric); K21.9 Gastro-esophageal reflux disease without esophagitis; F41.9 Anxiety disorder, unspecified; F32.A Depression, unspecified
CPT/HCPCS: 36415; 80053; 80061; 83721; 84443; 85025

== ENCOUNTER 2023-04-15 14:07 | Outpatient (CLI) | payer MEDICARE ==
--- NOTE | 2023-04-16 10:46 | Mammography Report ---
BILATERAL DIGITAL SCREENING MAMMOGRAM 3D/2D: 04/15/2023 CLINICAL: Routine screening. Comparison is made to exams dated: 01/14/2022 mammogram, 04/15/2018 mammogram, and 09/05/2015 mammogram - [facility]. There are scattered areas of fibroglandular density in both breasts (category b / 25%-50% glandular t issue). No significant masses, calcifications, or other findings are seen in either breast. There has been no significant interval change. IMPRESSION: NEGATIVE There is no mammographic evidence of malignancy. A 1 year screening mammogram is recommended. Based on the Tyrer Cuzick model (a risk assessment model) the patients lifetime risk is 2.9% and her 10 year risk is 0.0%. According to the ACR, ACS, and NCCN guidelines, an annual breast MRI exam silvino g with mammogram is recommended if the patients lifetime risk is 20% or greater. This exam was interpreted at Station ID: [id number]. NOTE: For mammograms, a report in lay terms will be sent to the patient. Approximately 15% of breast malignancies will not be visualized mammographically. In the management of a palpable breast mass, a negative mammogram must not discourage biopsy of a clinically suspicious lesion. Electronically Signed By: Rizwan payton/enrrique:04/15/2023 18:36:33 letter sent: No_Letter ACR BI-RADS Category 1: Negative 3341F PARENCHYMAL PATTERN: (A) - The breast(s) demonstrate(s) scattered fibroglandular densities. BI-RADS CATEGORY: (1) - 1 Mammogram [id number] 1 year screening LATERALITY: (B)
== END 2023-04-15 14:08 | disposition home or self-care (01) ==
LOC: DI 14:07
DX: Z12.31 Encounter for screening mammogram for malignant neoplasm of breast (principal); R92.323 Mammographic fibroglandular density, bilateral breasts

== ENCOUNTER 2023-07-24 15:52 | Emergency (ER) | payer MEDICARE ==
--- NOTE | 2023-07-24 16:07 | ED Physician Documentation ---
PD HPI DYSPNEA - Stated complaint Stated Complaint: SOA/DIZZY - Chief complaint Chief Complaint: Cardiac - History obtained from History obtained from: Patient - History of Present Illness Timing - onset: How many hours ago (3) Timing - onset during: Rest, Light activity Timing - duration: Hours (3) Timing - details: Abrupt onset, Still present, Waxing and waning (noted onset of feeling heart fast and irregular 3 hours ago, with undulating rate. Did not count rate per se but was quite fast. Feeling somewhat lightheaded and dyspnea, but no chest pain.) Inciting event(s): No: URI, Exercise, Immobilization/travel, Emotional event Improved by: No: Rest Worsened by: Exertion Associated symptoms: Palpitations. No: Fever, Cough, Wheezing, Chest pain / discomfort, Bilateral edema, Unilateral edema Similar symptoms before: Has not had sx before Review of Systems Constitutional: reports: Myalgias. denies: Fever, Chills Nose: denies: Rhinorrhea / runny nose, Congestion Throat: denies: Sore throat Cardiac: reports: Palpitations. denies: Chest pain / pressure, Pedal edema Respiratory: denies: Cough, Wheezing PD PAST MEDICAL HISTORY - Past Medical History Cardiovascular: Arrhythmia Respiratory: Shortness of breath, Sleep apnea, CPAP use Neuro: None Endocrine/Autoimmune: None GI: GI bleed, Ulcers, Other MOLD [employer] PLAST[employer] MOLDS: Fibroids : None HEENT: None Psych: Depression, Anxiety Musculoskeletal: Osteoarthritis, Chronic back pain Derm: None - Past Surgical History Past Surgical History: Yes Ortho: Hip replacement, Other /MOLD [employer] PLAST[employer] MOLDS: Hysterectomy HEENT: Tonsil/Adenoidectomy - Present Medications Home Medications: Ambulatory Orders Medication Instructions Recorded Confirmed Venlafaxine ER [Effexor ER] 75 mg PO DAILY 07/15/16 03/17/22 Mv-Mn/Om3/Dha/Epa/Fish/Lut/Kyaw 1 cap PO DAILY 09/25/17 03/17/22 [Lipotriad Visionary Softgel] traZODone [Desyrel] 50 mg PO QPM 09/25/17 03/17/22 Famotidine [Acid-Pep] 40 mg PO DAILY PM 05/21/21 03/17/22 diltiaZEM [Cardizem] 60 mg PO ONCE PRN #10 tablet 07/24/23 - Allergies Allergies/Adverse Reactions: Allergies Allergy/AdvReac Type Severity Reaction Status Date / Time gluten AdvReac Unknown Verified 07/24/23 16:01 - Social History Does the pt smoke?: No Smoking Status: Never smoker Does the pt drink ETOH?: No Does the pt have substance abuse?: No - Immunizations Immunizations are current?: Yes - POLST Patient has POLST: No POLST Status: Full Code PD ED PE NORMAL - Vitals Vital signs reviewed: Yes - General General: Alert and oriented X 3, Well developed/nourished - Neck Neck: Supple, no meningeal sign, No adenopathy - Cardiac Cardiac: No murmur. No: RRR (fast but seems regular at time of first seen in ED, prior to ECG. ) - Respiratory Respiratory: No respiratory distress, Clear bilaterally - Derm Derm: Normal color, Warm and dry - Extremities Extremities: Normal ROM s pain, No edema - Neuro Neuro: Alert and oriented X 3, No motor deficit, No sensory deficit Results - Vitals Vitals: Vital Signs - 24 hr 07/24/23 07/24/23 17:31 17:55 Heart Rate 72 80 Respiratory 18 19 Rate Blood Pressure 141/98 H O2 Saturation 98 97 Oxygen O2 Source [Without Activity] Room air O2 Source Room air - EKG (time done) 16:08 EKG releavant findings:: EKG personally interpreted by author of this note. Relevant findings are: Rate: Rate (enter#) (138) Rhythm: Sinus tachycardia (it appears sinus tach, though initially was quite regular at that rate, so might have been flutter. ) [place]: Normal Intervals: Wide QRS Ischemia: Normal ST segments. No: ST elevation c/w ischemia, ST depression - Labs Labs: Laboratory Tests 07/24/23 07/24/23 16:21 16:21 WBC 10.4 RBC 5.47 H Hgb 15.2 Hct 47.1 H MCV 86.1 MCH 27.8 MCHC 32.3 RDW 14.7 Plt Count 310 MPV 11.8 H Neut # (Auto) 6.1 Lymph # (Auto) 3.4 [place] # (Auto) 0.7 Eos # (Auto) 0.2 Baso # (Auto) 0.1 Absolute Nucleated RBC 0.00 Nucleated RBC % 0.0 Sodium 134 L Potassium 4.0 Chloride 100 L Carbon Dioxide 23 Anion Gap 11.0 BUN 20 Creatinine 0.9 Estimated GFR (MDRD) 60 L Glucose 103 Calcium 9.9 Magnesium 1.9 Total Bilirubin 0.5 AST 26 ALT 25 Alkaline Phosphatase 118 Total Protein 6.9 Albumin 4.2 Globulin 2.7 Albumin/Globulin Ratio 1.6 Lipase 53 Serum Ketones NEGATIVE - Rads (name of study) chest xray Relevant Findings:: Prelim report reviewed, EMP independent interpretation of test (no acute process) PD Medical Decision Making - ED course Complexity details: reviewed results (ECG sinus tach. CXR clear. Lytes and sugar are okay. Negative ketones. ), considered differential (description sounds like SVT versus atrial fib. at time of presentation, HR is 138 and appears p waves, though could be flutter as is fairly regular at that rate. Within few minutes, HR slows though and come down to under 100. Clearly NSR with variability. No clear trigger reason for this. ), d/w patient ED course: she is on ketogenic diet the past 3 weeks, but is not ketotic and lytes are okay here. Not an alcohol drinker. Unclear if a one time event. She is going on intermational trip on . We discussed being on diltiazem daily versus "pill in a pocket". Subsequently will want to have Ziopatch, ECHO type workup. Departure - Departure Disposition: 01 Home, Self Care Clinical Impression: Tachyarrhythmia Condition: Stable Record reviewed to determine appropriate education?: Yes Instructions: Atrial Fibrillation Dc Follow-Up: Ernst Devi MD [Primary Care Provider] - Prescriptions: diltiaZEM [Cardizem] 60 mg PO ONCE PRN #10 tablet PRN Reason: Cardiac Arrhythmia Comments: Your heart rate had started to improve on its own just as your getting here. Your initial EKG showed a fast heart rate approximately 138 that appeared to be regular. However I think we are just catching your abnormal heart rhythm and transition back to normal and subsequently is looking a regular rhythm all by itself. Most likely the abnormality you had was atrial fibrillation given your symptoms and the pattern of it slowly slowly decreasing in rate. Follow-up with your primary care. Potential further testing would be a heart monitor that you wear for several days to a week (Holter or Zio patch) and possibly a echocardiogram/ultrasound of the heart. Could also consider stress testing to ensure no underlying heart disease. Generally these tests end up coming back normal much of the time. The exception would be the heart monitor test which sometimes will show brief episodes of abnormal heart rhythm that you are unaware of. If so this would indicate the need for more consistent or daily medication. Otherwise stay well-hydrated and continue your current diet and activities etc. If you have an episode again, then take a diltiazem tablet while sitting down and resting and being sure to be hydrated. Give the medication half hour to an hour and see if it slows your heart rate down and it gets back to more normal nayeli/rhythm. If it still fairly irregular or fast, you could take a second dose after an hour and see if its back to normal then. This method is called the "pill in the pocket" method with that intermittent abnormal rhythms. I sent the prescription to your preferred pharmacy, [facility]. Return back to the ER if you have a recurrent episode unrelieved with the medicine etc. Forms: PCP List Discharge Date/Time: 07/24/23 17:55
[2023-07-24] MEDS: SODIUM CHLORIDE 0.9% 500 ML IV STA (16:26)
[2023-07-24 16:27] LABS: BASOPHILS # (AUTO) 0.1 10^3/uL (0.0-0.1); BASOPHILS % (AUTO) 0.6 %; EOSINOPHILS # (AUTO) 0.2 10^3/uL (0.0-0.7); EOSINOPHILS % (AUTO) 1.5 %; HCT - HEMATOCRIT 47.1 % (37.0-47.0); HGB - HEMOGLOBIN 15.2 g/dL (12.0-16.0); LYMPHOCYTES # (AUTO) 3.4 10^3/uL (1.5-3.5); LYMPHOCYTES % (AUTO) 32.8 %; MEAN CORPUSCULAR HEMOGLOBIN 27.8 pg (27.0-31.0); MEAN CORPUSCULAR HGB CONC 32.3 g/dL (32.0-36.0); MEAN CORPUSCULAR VOLUME 86.1 fL (81.0-99.0); MEAN PLATELET VOLUME 11.8 fL (7.9-10.8); MONOCYTES # (AUTO) 0.7 10^3/uL (0.0-1.0); MONOCYTES % (AUTO) 6.4 %; NEUTROPHILS # (AUTO) 6.1 10^3/uL (1.5-6.6); NEUTROPHILS % (AUTO) 58.4 %; PLT - PLATELET COUNT 310 10^3/uL (130-450); RED BLOOD COUNT 5.47 10^6/uL (4.20-5.40); RED CELL DISTRIBUTION WIDTH 14.7 % (12.0-15.0); WHITE BLOOD COUNT 10.4 x10^3/uL (4.8-10.8)
[2023-07-24 16:32] LABS: KETONES, SERUM (ACETEST) NEGATIVE (NEGATIVE)
[2023-07-24 16:44] LABS: ALBUMIN 4.2 g/dL (3.2-5.5); ALBUMIN/GLOBULIN RATIO 1.6 (1.0-2.2); ALKALINE PHOSPHATASE 118 IU/L (42-121); ALT ALANINE AMINOTRANSFERASE 25 IU/L (10-60); AST ASPARTATE AMINOTRANSFERASE 26 IU/L (10-42); BILIRUBIN,TOTAL 0.5 mg/dL (0.2-1.0); BUN - BLOOD UREA NITROGEN 20 mg/dL (6-20); CALCIUM 9.9 mg/dL (8.5-10.3); CARBON DIOXIDE - CO2 23 mmol/L (21-32); CHLORIDE 100 mmol/L (101-111); CREATININE 0.9 mg/dL (0.6-1.3); GFR - MDRD 60 (>89); GLUCOSE 103 mg/dL (74-104); LIPASE 53 U/L (11-82); MAGNESIUM 1.9 mg/dL (1.7-2.3); SODIUM 134 mmol/L (135-145); TOTAL PROTEIN 6.9 g/dL (6.4-8.9)
--- NOTE | 2023-07-24 17:22 | XRAY Report ---
PROCEDURE: Chest 1V INDICATIONS: Chest Pain TECHNIQUE: One view of the chest was acquired. COMPARISON: None. FINDINGS: Surgical changes and devices: None. Lungs and pleura: No pleural effusions or pneumothorax. Lungs are clear. Mediastinum: Mediastinal contours appear normal. Heart size is normal. Bones and chest wall: No suspicious bony lesions. Overlying soft tissues appear unremarkable. IMPRESSION: No acute cardiopulmonary process. Reviewed by: Monae Garcia MD on 07/24/2023 4:21 PM [email or web address] Approved by: Monae Garcia MD on 07/24/2023 4:21 PM AKDT Station ID: [id number]
[2023-07-24 17:43] VITALS: BP 141/98
[2023-07-24 18:01] VITALS: O2SAT 97
== END 2023-07-24 17:55 | disposition home or self-care (01) ==
LOC: ED 15:52
DX: R00.0 Tachycardia, unspecified (principal)
CPT/HCPCS: 36415; 80053; 82009; 83690; 83735; 85025; 93005; 99284

== ENCOUNTER 2024-01-14 09:01 | Outpatient (CLI) | payer MEDICARE ==
[2024-01-14 09:11] LABS: BASOPHILS # (AUTO) 0.1 10^3/uL (0.0-0.1); BASOPHILS % (AUTO) 0.8 %; EOSINOPHILS # (AUTO) 0.2 10^3/uL (0.0-0.7); EOSINOPHILS % (AUTO) 2.8 %; HCT - HEMATOCRIT 41.9 % (37.0-47.0); HGB - HEMOGLOBIN 13.6 g/dL (12.0-16.0); LYMPHOCYTES # (AUTO) 2.3 10^3/uL (1.5-3.5); LYMPHOCYTES % (AUTO) 35.6 %; MEAN CORPUSCULAR HEMOGLOBIN 28.4 pg (27.0-31.0); MEAN CORPUSCULAR HGB CONC 32.5 g/dL (32.0-36.0); MEAN CORPUSCULAR VOLUME 87.5 fL (81.0-99.0); MEAN PLATELET VOLUME 10.9 fL (7.9-10.8); MONOCYTES # (AUTO) 0.5 10^3/uL (0.0-1.0); MONOCYTES % (AUTO) 7.5 %; NEUTROPHILS # (AUTO) 3.4 10^3/uL (1.5-6.6); NEUTROPHILS % (AUTO) 53.1 %; PLT - PLATELET COUNT 262 10^3/uL (130-450); RED BLOOD COUNT 4.79 10^6/uL (4.20-5.40); WHITE BLOOD COUNT 6.4 x10^3/uL (4.8-10.8)
[2024-01-14 09:32] LABS: ALBUMIN 3.9 g/dL (3.2-5.5); ALBUMIN/GLOBULIN RATIO 1.5 (1.0-2.2); ALKALINE PHOSPHATASE 102 IU/L (42-121); ALT ALANINE AMINOTRANSFERASE 22 IU/L (10-60); AST ASPARTATE AMINOTRANSFERASE 28 IU/L (10-42); BILIRUBIN,TOTAL 0.8 mg/dL (0.2-1.0); BUN - BLOOD UREA NITROGEN 15 mg/dL (6-20); CALCIUM 9.1 mg/dL (8.5-10.3); CARBON DIOXIDE - CO2 28 mmol/L (21-32); CHLORIDE 103 mmol/L (101-111); CHOL/HDL RATIO 2.5 (<4.4); CHOLESTEROL 201 mg/dL; CREATININE 0.9 mg/dL (0.6-1.3); GFR - MDRD 60 (>89); GLUCOSE 90 mg/dL (74-104); HDL CHOLESTEROL 82 mg/dL; LDL CHOLESTEROL,CALCULATED 105 mg/dL; LDL/HDL RATIO 1.3 (<4.4); POTASSIUM 3.9 mmol/L (3.5-4.5); SODIUM 138 mmol/L (135-145); TOTAL PROTEIN 6.5 g/dL (6.4-8.9); TRIGLYCERIDES 70 mg/dL; VLDL CHOLESTEROL 14 mg/dL
[2024-01-14 09:48] LABS: THYROID STIMULATING HORMONE 2.01 uIU/mL (0.34-5.60)
== END 2024-01-14 09:02 | disposition home or self-care (01) ==
LOC: LAB 09:01
PROVIDERS: ATTEND Nurse Practitioner Family
DX: I49.3 Ventricular premature depolarization (principal); R55 Syncope and collapse; E66.9 Obesity, unspecified; G47.9 Sleep disorder, unspecified; F41.9 Anxiety disorder, unspecified; F32.A Depression, unspecified
CPT/HCPCS: 36415; 80053; 80061; 83721; 84443; 85025